=== PATIENT | female | born 2000 | race Caucasian/White ===

== ENCOUNTER → 2018-02-16 | Outpatient (CLI) | payer OTHER | END | disposition home or self-care (01) | LOC: C.LABSPEC 11:12 | PROVIDERS: ATTEND Physician Assistant | DX: Z12.4 Encounter for screening for malignant neoplasm of cervix (principal) ==

== ENCOUNTER 2022-04-19 12:55 | Inpatient (IN) ==
[2022-04-19] MEDS ORDERED: OXYTOCIN 30 UNITS/500 ML BAG IV PRN ×2 (13:44→17:06)
--- NOTE | 2022-04-19 13:55 | History & Physical Report ---
Date of Service April 19, 2022 Assessment & Plan (1) Spontaneous rupture of amniotic membranes: Plan: Admit and anticipate normal delivery History of Present Illness Chief Complaint: ruptured membranes Primary Care Provider: CASSY PCP 21 F P0000 at 36.6 weeks presents to L&D with leakage of clear fluid at 0500 t his AM. GBS is negative. Covid is negative. Allergies Allergy/AdvReac Type Severity Reaction Status Date / Time No Known Drug Allergies AdvReac Unknown Unknown Verified 04/19/22 13:21 Home Medications Medication Instructions Recorded Confirmed Type calcium 500 mg tablet 500 mg PO DAILY 04/14/22 04/19/22 History [id number] 1 mg 1 tab PO DAILY 04/14/22 04/19/22 History tablet Patient History Medical History No pertinent past medical history Surgical History S/P wisdom tooth extraction Family History Father Hypertension Mother No significant active problems Sister No problems noted. Denies family history of Ovarian cancer Prostate cancer Clotting disorder Myocardial infarction Breast cancer Colorectal cancer Uterine cancer Social History (Updated 04/19/22 @ 13:09 by Modesta Tapia) Smoking Status: Never smoker Hx Alcohol Use: No Hx Substance Use: No Preferred Language: Latvian Communication Ability: Effective Visual Impairment: No Limitations Hearing Ability: Normal Cotton Bag Clipper Required: No Beliefs That Will Affect Care: None marital status: marital status details: Yogi Cordova Current Living Situation: Spouse Current Living Situation Comment: current occupational status: employed current occupation: [employer]- [employer] Feels Safe at Home: Yes Childhood Exposure to Second-Hand Smoke: No Dental Care, Regularly: Yes Physical Activity Frequency: Daily Seatbelt Use: always Sunscreen Use: No 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 History neg Review of Systems All systems reviewed & are unremarkable except as noted in HPI & below Physical Exam Constitutional: WD/WN, vitals as above Eyes: PERRL, conjunctivae normal, anicteric sclerae Respiratory: normal respiratory effort, lungs clear to auscultation Cardiovascular: RRR, no murmur, no edema Skin: no rashes, warm and dry Neurologic: patellar DTR's 2+ bilat, sensation intact Psychiatric: A+Ox3, euthymic affect Genitourinary: no vaginal lesions, no adnexal mass normal external appearance Manual OB Exam: + cervical dilation 3 cm and 4 cm, + cervical effacement 80% and + station -2 OB Exam Monitor Tracing: + external FHT monitor used, + external uterine monitor used, + category I and + normal FHT variability Results & Data ([place]) Vital Signs (Past 12 Hours) Vital Signs Pulse BP 04/19/22 13:07 78 157/87 H Laboratory Results Amnisure is positive Code Status & VTE Plan VTE Prophylaxis Plan VTE Prophylaxis will be ordered: No Monitoring External Monitor Cat 1
[2022-04-19 14:17] LABS: Hematocrit (blood only) 34.5 % (37-47); Hemoglobin 11.8 g/dL (12.0-16.0); Mean Corpuscular Hemoglobin 30.2 pg (25-34); Mean Corpuscular Hgb Conc 34.2 g/dL (32-36); Mean Corpuscular Volume 88.2 fL (80-100); Mean Platelet Volume 10.5 fL (7.4-10.4); Platelet Count 187 K/uL (130-400); RDW Coefficient of Variation 13.2 % (11.5-14.5); RDW Standard Deviation 42.4 fL (36.4-46.3); Red Blood Count 3.91 M/uL (4.2-5.4); White Blood Count 8.86 K/uL (4.8-10.8)
[2022-04-19] MEDS ORDERED: BETAMETH SOD PHOS/ACETATE IA 6 MG/ML ONE (15:03)
[2022-04-19] MEDS ORDERED: Nursing to Pharmacy Communication SCH (15:15)
[2022-04-19] MEDS ORDERED: BETAMETH SOD PHOS/ACETATE IA 6 MG/ML IM ONE (15:45)
[2022-04-19] MEDS: LACTATED RINGER'S 1,000 ML IV PRN ×2 (17:42→22:20)
[2022-04-19] MEDS ORDERED: BUPIVACAINE 0.25% 30 ML VIAL ONE (20:01)
[2022-04-19] MEDS ORDERED: SODIUM CHLORIDE 0.9% INJ 10 ML VIAL ONE (20:01)
[2022-04-19] MEDS ORDERED: ePHEDrine sulfate 50 MG/ML AMP ONE (20:01)
[2022-04-19] MEDS ORDERED: fentaNYL citrate 100 MCG/2 ML VIAL ONE (20:01)
[2022-04-19] MEDS ORDERED: fentaNYL 2MCG/ML ROPIVACAINE 1.25MG/ML 100 ML BAG EPI ONE (20:02)
--- NOTE | 2022-04-19 20:25 | Anesthesiology Consultation ---
Date of Service April 19, 2022 Assessment & Plan Chart Review Chart Review: Acceptable Risk for Surgery, Patient NOT seen in Pre Admission Testing and Acceptable Risk for Labor Epidural Consults Requested none ASA ASA2 Proposed Anesthesia Anesthesia Type: Labor Epidural and CSE Risk / Benefits Reviewed With: PT / POA / Parent / Guardian, Accepts Plan and Informed Consent Obtained Additional Comments: covid test negative History Height/Weight Height: 5 ft Weight: 72.121 kg Allergies Allergy/AdvReac Type Severity Reaction Status Date / Time No Known Drug Allergies AdvReac Unknown Unknown Verified 04/19/22 13:21 Medications Home Medications Medication Instructions Recorded Confirmed Last Taken calcium 500 mg tablet 500 mg PO DAILY 04/14/22 04/19/22 04/19/22 07:00 [id number] 1 mg 1 tab PO DAILY 04/14/22 04/19/22 04/19/22 07:00 tablet Active Medications Generic Name Dose Route Start Last Admin Trade Name Freq PRN Reason Stop Dose Admin Lactated Ringer's 1,000 mls @ 125 mls/hr 04/19/22 13:44 04/19/22 17:42 Lr IV 04/21/22 13:43 125 mls/hr .Q8H PRN Administration L&D Protocol Protocol Oxytocin 30 units in 500 mls @ 3 mls/hr 04/19/22 17:06 04/19/22 18:45 Pitocin IV 04/21/22 17:05 0.18 units/hr .Q24H PRN 3 mls/hr Labor Induction/Augmentation Titration Protocol 0.18 UNITS/HR NPO Date Last Intake of Fluids: 04/19/22 Time Last Intake of Fluids: 19:45 Date Last Intake of Solids: 04/19/22 Time Last Intake of Solids: 12:00 Past Medical History Medical History No pertinent past medical history Exercise / Class Metabolic Activity II 4-5 Yardwork/Stairs/Walk up hill Past Family History Family History Father Hypertension Mother No significant active problems Sister No problems noted. Denies family history of Ovarian cancer Prostate cancer Clotting disorder Myocardial infarction Breast cancer Colorectal cancer Uterine cancer Past Surgical History Surgical History S/P wisdom tooth extraction Past Anesthesia History No Hx of Anesthesia Complications and No Family Hx of Anesthesia Complications History of PONV No Hx of PONV and No Hx of Motion Sickness Social History Smoking Status: Never smoker Do You Dip or Chew Tobacco: No Hx Alcohol Use: No Hx Substance Use: No substance use type: does not use Physical Exam Vital Signs Last Vital Signs Temp 36.8 C 04/19/22 19:00 Pulse 93 H 04/19/22 20:21 Resp 18 04/19/22 20:00 BP 143/90 H 04/19/22 19:38 Pulse Ox 100 04/19/22 20:21 Constitutional + obese ENMT Mouth: no dentition abnormality Thyromental Distance: < 3.5 Finger Breadths Mallampati Class: II Neck normal visual inspection and trachea midline; neck extension not limited Respiratory normal respiratory effort Auscultation: lungs clear to auscultation bilaterally Cardiovascular Rate/Rhythm: regular rate and regular rhythm Heart Sounds: no murmur Vessels: no carotid bruit Musculoskeletal Spine: lumbar spine normal to inspection; normal cervical ROM Extremities: extremities normal to inspection Neurologic moves all extremities Motor/Sensory: no sensory deficit Psychiatric Orientation: alert and oriented x 3 Testing Laboratory Results 04/19/22 14:08
[2022-04-19] MEDS ORDERED: NALOXONE HCL 1 MG in SODIUM CHLORIDE 0.9% 1000ML 1,000 ML IV PRN (20:51)
[2022-04-19] MEDS ORDERED: PROMETHAZINE HCL 25 MG in SODIUM CHLORIDE 0.9% 50 ML IV PRN (20:51)
[2022-04-19] MEDS ORDERED: NALOXONE HCL 0.4 MG/1 ML VIAL/CARP IV PRN (20:51)
[2022-04-19] MEDS ORDERED: fentaNYL 2MCG/ML ROPIVACAINE 1.25MG/ML 100 ML BAG EPI PRN (20:51)
[2022-04-19] MEDS ORDERED: ONDANSETRON INJ 2 MG/ML 2 ML VIAL IV PRN (20:51)
[2022-04-19] MEDS ORDERED: ePHEDrine sulfate 50 MG/ML AMP IV PRN (20:51)
[2022-04-19] MEDS ORDERED: NALBUPHINE HCL INJ 10 MG/ML AMP IV PRN (20:51)
[2022-04-19] MEDS ORDERED: diphenhydrAMINE 50 MG/ML VIAL IV PRN (20:51)
[2022-04-20] MEDS ORDERED: OXYTOCIN 30 UNITS/500 ML BAG IV PRN (02:30)
[2022-04-20] MEDS ORDERED: ACETAMINOPHEN 325 MG TAB PO PRN (02:30)
[2022-04-20] MEDS ORDERED: HYDROCORTISONE ACETATE 25 MG SUPP PR PRN (02:30)
[2022-04-20] MEDS ORDERED: BENZOCAINE 20% AER SPR 82.5 GM CAN EXT PRN (02:30)
[2022-04-20] MEDS ORDERED: DIPHTHERIA/TETANUS/PERTUSSIS 0.5 ML SYR/VIAL IM ONE (02:30)
--- NOTE | 2022-04-20 02:34 | Delivery Summary ---
Vaginal Delivery Summary Date of Service April 20, 2022 Vaginal Delivery Summary Delivery Note live male ARTHUR over intact perineum with delayed cord clamping and Apgars 8/9 weight pending. Cord blood obtained followed by spontaneous delivery of velamentous cord insertion. No tears. EBL 100 ml. Final sponge and instrument count are correct. Mom and baby stable.
[2022-04-20] MEDS ORDERED: IBUPROFEN 600 MG TAB PO ONE (03:03)
[2022-04-20] MEDS: IBUPROFEN 600 MG TAB PO PRN ×5 (03:04→23:46)
--- NOTE | 2022-04-20 03:28 | Anesthesia Procedure Note ---
Date of Service April 20, 2022 Anesthesia Post Epidural Note Vital Signs Vital Signs: Temp Pulse Resp BP Pulse Ox 98.2 F 119 H 20 119/57 L 95 04/19/22 23:00 04/20/22 03:25 04/20/22 03:00 04/20/22 03:14 04/20/22 03:25 Pain Intensity Bilateral Head: Pain Intensity: 3 Notes Mental Status: alert / awake / arousable and participated in evaluation Nausea / Vomiting: adequately controlled Pain: adequately controlled Airway Patency, RR, SpO2: stable & adequate BP & HR: stable & adequate Hydration State: stable & adequate Neuraxial Anesthesia: was administered and sensory block is resolving Anesthetic Complications: no major complications apparent and Pt Satisfied with anesthetic care Epidural: Removed without complications and With tip intact
[2022-04-20] MEDS: PRENATAL VITAMIN 1 TAB PO SCH (08:22)
[2022-04-20] MEDS: FERROUS SULFATE 325 MG TAB PO SCH (08:22)
[2022-04-20] MEDS: CALCIUM CARBONATE 1250MG TAB PO SCH (08:22)
[2022-04-20] MEDS: DOCUSATE SODIUM 100 MG CAP PO SCH ×2 (08:22→19:30)
[2022-04-20] MEDS ORDERED: NON-FORMULARY MEDICATION (Prenatal Multivit-Min-Fe-Fa 1 mg Tablet) PO SCH (09:00)
[2022-04-20] MEDS ORDERED: BETAMETH SOD PHOS/ACETATE IA 6 MG/ML IM SCH (13:45)
[2022-04-21 06:18] LABS: Hematocrit (blood only) 30.2 % (37-47); Hemoglobin 10.2 g/dL (12.0-16.0); Mean Corpuscular Hemoglobin 30.7 pg (25-34); Mean Corpuscular Hgb Conc 33.8 g/dL (32-36); Mean Platelet Volume 10.5 fL (7.4-10.4); Platelet Count 184 K/uL (130-400); RDW Coefficient of Variation 13.4 % (11.5-14.5); RDW Standard Deviation 44.2 fL (36.4-46.3); Red Blood Count 3.32 M/uL (4.2-5.4); White Blood Count 15.02 K/uL (4.8-10.8)
--- NOTE | 2022-04-21 11:04 | Obstetrical Progress Note ---
Date of Service April 21, 2022 Subjective Ambulation: ambulating normally Voiding: no voiding problems Passing Gas:: Yes Diet Tolerance:: regular diet Lochia:: Small Feeding Type:: breast feeding Current Pain Level(1-10): 0 doing well wants to home if baby cleared for d/c Physical Exam Constitutional WD/WN, vitals as above abdomen soft and non-tender fundus firm no edema neg Leandra's Results & Data ([facility]) Vital Signs (Past 12 Hours) Vital Signs Temp Pulse Resp BP Pulse Ox 04/21/22 07:46 36.6 C 71 18 97/61 L 98 04/20/22 23:45 36.7 C 63 18 102/62 97 Laboratory Results all 04/19/22 04/19/22 04/21/22 14:08 17:14 05:58 WBC 8.86 15.02 H RBC 3.91 L 3.32 L Hgb 11.8 L 10.2 L Hct 34.5 L 30.2 L MCV 88.2 91.0 MCH 30.2 30.7 MCHC 34.2 33.8 RDW Std Deviation 42.4 44.2 RDW Coeff of Jhony 13.2 13.4 Plt Count 187 184 MPV 10.5 H 10.5 H Amniotic Protein POS
[2022-04-21] MEDS: PRENATAL VITAMIN 1 TAB PO SCH (11:07)
[2022-04-21] MEDS: FERROUS SULFATE 325 MG TAB PO SCH (11:07)
[2022-04-21] MEDS: DOCUSATE SODIUM 100 MG CAP PO SCH ×2 (11:08→19:57)
[2022-04-21] MEDS: IBUPROFEN 600 MG TAB PO PRN ×2 (11:08→19:57)
[2022-04-21] MEDS ORDERED: bisacodyL 5 MG TABEC PO SCH (20:00)
[2022-04-22] MEDS ORDERED: bisacodyL 10 MG SUPP PR PRN (02:30)
[2022-04-22 06:25] LABS: Hematocrit (blood only) 29.9 % (37-47)
[2022-04-22] MEDS: CALCIUM CARBONATE 1250MG TAB PO SCH (08:11)
[2022-04-22] MEDS: DOCUSATE SODIUM 100 MG CAP PO SCH (08:11)
[2022-04-22] MEDS: FERROUS SULFATE 325 MG TAB PO SCH (08:11)
[2022-04-22] MEDS: PRENATAL VITAMIN 1 TAB PO SCH (08:11)
[2022-04-22] MEDS: IBUPROFEN 600 MG TAB PO PRN (08:11)
--- NOTE | 2022-04-22 09:44 | Obstetrical Progress Note ---
Date of Service April 22, 2022 Subjective Ambulation: ambulating normally Voiding: no voiding problems Passing Gas:: Yes Diet Tolerance:: regular diet Lochia:: Small Feeding Type:: breast feeding Current Pain Level(1-10): 0 doing well Physical Exam Constitutional WD/WN, vitals as above Gastrointestinal (Abdomen) Inspection/Auscultation: abdomen normal to inspection Abdomen soft and non-tender. fundus firm below U Skin no rashes, warm and dry Neurologic patellar DTR's 2+ bilat, sensation intact Results & Data ([facility]) Vital Signs (Past 12 Hours) Vital Signs Temp Pulse Resp BP Pulse Ox 04/22/22 09:31 36.8 C 89 18 141/84 H 99 04/22/22 07:55 36.8 C 89 18 141/84 H 99 04/21/22 23:39 36.7 C 77 16 120/77 97 Laboratory Results 04/19/22 04/19/22 04/21/22 14:08 17:14 05:58 WBC 8.86 15.02 H RBC 3.91 L 3.32 L Hgb 11.8 L 10.2 L Hct 34.5 L 30.2 L MCV 88.2 91.0 MCH 30.2 30.7 MCHC 34.2 33.8 RDW Std Deviation 42.4 44.2 RDW Coeff of Jhony 13.2 13.4 Plt Count 187 184 MPV 10.5 H 10.5 H Amniotic Protein POS 04/22/22 06:03 WBC RBC Hgb 10.0 L Hct 29.9 L MCV MCH MCHC RDW Std Deviation RDW Coeff of Jhony Plt Count MPV Amniotic Protein
== END 2022-04-22 15:20 | disposition home or self-care (01) | DRG 807 ==
LOC: OPB 12:55 → 4S1 12:59 → 4E2 04-20 05:16

== ENCOUNTER 2024-11-26 17:46 | Inpatient (IN) ==
--- NOTE | 2024-11-26 18:10 | History & Physical Report ---
Date of Service November 26, 2024 Assessment & Plan (1) Breech presentation: Present on Admission?: Yes (2) IUGR, : Present on Admission?: Yes (3) Oligohydramnios: Present on Admission?: Yes Plan Admit on L and D NPO/IV Fluids labs Silveira to catheter Ancef 2 gm iv Pepcid, Reglan consent obtained, discussed the risks and benefits of the procedure OR and Anesthesia informed Admission and Anticipated Discharge Date Admission Date: November 26, 2024 History of Present Illness Chief Complaint: scheduled primary low transverse section for breech presentation, low LENNY, IUGR Primary Care Provider: NO PCP Pt 23 yr old IUP at 37 weeks came to L and D from the office for primary low transverse section for malpresentation( breech), IUGR ( EFW: 8 %),LENNY ( 3.8 cm) Pt denies regular uterine contractions, vaginal bleeding, leaking of fluid per vagina etc. Reports food movement. Allergies Allergy/AdvReac Type Severity Reaction Status Date / Time No Known Drug Allergies AdvReac Unknown Unknown Verified 11/26/24 17:59 Home Medications Medication Instructions Recorded Confirmed Type aspirin 81 mg capsule 81 mg PO DAILY 11/26/24 11/26/24 History ferrous sulfate 325 mg (65 mg 325 mg PO DAILY 11/26/24 11/26/24 History iron) tablet (Iron (ferrous sulfate)) vits no.124-ferrous fum 1 tab PO DAILY 11/26/24 11/26/24 History 27 mg iron-folic acid 800 mcg tablet ( Vitamin) Patient History Medical History Varicella vaccination Spontaneous rupture of amniotic membranes Gestational [-induced] hypertension without significant proteinuria, complicating childbirth Surgical History S/P wisdom tooth extraction Family History Father Hypertension Mother No significant active problems Sister No problems noted. Denies family history of Ovarian cancer Prostate cancer Clotting disorder Myocardial infarction Breast cancer Colorectal cancer Uterine cancer Social History Smoking Status: Never smoker Second Hand Exposure: No; Do You Dip or Chew Tobacco: No; Hx Alcohol Use: No Hx Substance Use: No Preferred Language: Estonian Communication Ability: Effective Visual Impairment: No Limitations Hearing Ability: Normal Recordist Chief Required: No Beliefs That Will Affect Care: None marital status: marital status details: Yogi Cordova (28) [phone] Current Living Situation: Spouse and Family Current Living Situation Comment: Lives with and son, 1 dog current occupational status: employed current occupation: [employer] How many Children do You have: 1 Feels Safe at Home: Yes Childhood Exposure to Second-Hand Smoke: No Diet: regular Dental Care, Regularly: Yes Physical Activity Frequency: Daily Seatbelt Use: always Sunscreen Use: No Assistive Devices: None OB History NSVDx 1 Review of Systems All systems reviewed & are unremarkable except as noted in HPI & below as per Subjective / HPI as per Subjective / HPI as per Subjective / HPI as per Subjective / HPI as per Subjective / HPI Physical Exam Constitutional: WD/WN, vitals as above Respiratory: normal respiratory effort, lungs clear to auscultation Cardiovascular: RRR, no murmur, no edema Gastrointestinal (Abdomen): normal bowel sounds, soft, nontender, no hepatosplenomegaly Skin: no rashes, warm and dry Psychiatric: A+Ox3, euthymic affect Genitourinary: no vaginal lesions, no adnexal mass OB Exam Monitor Tracing: + external FHT monitor used, + external uterine monitor used and + category II Results & Data Vital Signs (Past 12 Hours) Vital Signs Temp Pulse Resp BP 11/26/24 17:57 36.8 C 18 11/26/24 17:56 99 H 133/85 Monitoring External Monitor 140S, Moderate variability Tocodynamometer irregular uterine contractions
[2024-11-26] MEDS: SODIUM CHLORIDE 0.9% 1,000 ML IV SCH (18:15)
[2024-11-26] MEDS: ACETAMINOPHEN 500 MG TAB ONE (18:18)
[2024-11-26 18:30] LABS: Hemoglobin 12.3 g/dl (12.0-16.0); Mean Corpuscular Hemoglobin 29.1 pg (25.0-34.0); Mean Corpuscular Hgb Conc 34.2 g/dL (32.0-36.0); Mean Corpuscular Volume 85.3 fL (80.0-100.0); Platelet Count 212 K/uL (130-400); RDW Coefficient of Variation 14.2 % (11.5-14.5); RDW Standard Deviation 43.3 fL (36.4-46.3); Red Blood Count 4.22 M/uL (4.20-5.40); White Blood Count 11.36 K/ul (4.8-10.8)
[2024-11-26] MEDS: CITRIC ACID/SODIUM CITRATE 15 ML UDC PO ONE (18:31)
[2024-11-26] MEDS: ACETAMINOPHEN 500 MG TAB PO ONE (18:31)
[2024-11-26] MEDS ORDERED: SODIUM CHLORIDE 0.9% 1,000 ML IV SCH ×2 (19:15→23:15)
[2024-11-26] MEDS: ceFAZolin 2000MG 2,000 MG/15 ML SYR IV ONE (21:50)
[2024-11-26] MEDS: CITRIC ACID/SODIUM CITRATE 15 ML UDC ONE (21:50)
--- NOTE | 2024-11-26 21:55 | Anesthesiology Consultation ---
Date of Service November 26, 2024 Assessment & Plan Chart Review Chart Review: Acceptable Risk for Surgery Consults Requested none History Surgery Operation Date: 11/26/24 19:00 Proposed Procedures p Section in LD(Bilateral) - Jeanna Perez MD Height/Weight Height: 5 ft Weight: 74.389 kg Allergies Allergy/AdvReac Type Severity Reaction Status Date / Time No Known Drug Allergies AdvReac Unknown Unknown Verified 11/26/24 17:59 Medications Home Medications Medication Instructions Recorded Confirmed Last Taken aspirin 81 mg capsule 81 mg PO DAILY 11/26/24 11/26/24 11/26/24 ferrous sulfate 325 mg (65 mg 325 mg PO DAILY 11/26/24 11/26/24 11/26/24 iron) tablet (Iron (ferrous sulfate)) vits no.124-ferrous fum 1 tab PO DAILY 11/26/24 11/26/24 11/26/24 27 mg iron-folic acid 800 mcg tablet ( Vitamin) Past Medical History Medical History Varicella vaccination Spontaneous rupture of amniotic membranes Gestational [-induced] hypertension without significant proteinuria, complicating childbirth Past Family History Family History Father Hypertension Mother No significant active problems Sister No problems noted. Denies family history of Ovarian cancer Prostate cancer Clotting disorder Myocardial infarction Breast cancer Colorectal cancer Uterine cancer Past Surgical History Surgical History S/P wisdom tooth extraction Social History Smoking Status: Never smoker Do You Dip or Chew Tobacco: No Hx Substance Use: No substance use type: does not use Physical Exam Vital Signs Last Vital Signs Temp 36.5 C 11/26/24 19:30 Pulse 102 H 11/26/24 21:19 Resp 16 11/26/24 19:30 BP 124/74 11/26/24 21:19 Testing Laboratory Results 11/26/24 18:09 Blood Type A Positive 11/26/24 18:09 Antibody Screen NEGATIVE 11/26/24 18:09
[2024-11-26] MEDS ORDERED: PHENYLEPHRINE HCL 25 MG/250 ML NSS IV ONE (22:10)
[2024-11-26] MEDS ORDERED: MoRPHine SULFATE PF 1 MG/ML 10 ML AMP/VIAL ONE (22:10)
[2024-11-26] MEDS ORDERED: ONDANSETRON INJ 2 MG/ML 2 ML VIAL ONE (22:16)
[2024-11-26] MEDS ORDERED: OXYTOCIN 10 UNITS/ML VIAL ONE (22:17)
[2024-11-26] MEDS ORDERED: SENNA 8.6 MG TAB PO PRN (23:03)
[2024-11-26] MEDS ORDERED: MAGNESIUM HYDROXIDE SUSP 30 ML UDC PO PRN (23:03)
[2024-11-26] MEDS ORDERED: CALCIUM CARBONATE 500 MG CHEWABLE TAB PO PRN (23:03)
[2024-11-26] MEDS ORDERED: HYDROCORTISONE ACETATE 25 MG SUPP PR PRN (23:03)
[2024-11-26] MEDS ORDERED: ONDANSETRON INJ 2 MG/ML 2 ML VIAL IV PRN (23:03)
[2024-11-26] MEDS ORDERED: BENZOCAINE 20% SPRY 85 APPLN/85 GM CAN EXT PRN (23:03)
--- NOTE | 2024-11-26 23:05 | Post Operative Brief Note ---
Immediate Post Op Note Date of Surgery November 26, 2024 Pre & Post Diagnosis Operation Date: 11/26/24 19:00 Pre-Op Diagnosis: 1. Breech presentation 2. IUGR 3. Oligohydramnios Post-Op Diagnosis: 1. Same 2. Delivery of live female child at 2240 I identified the patient and participated in the time-out.: Yes Procedure Operation Date: 11/26/24 19:00 Actual Procedures p Section in LD - Jeanna Perez MD Surgeon Jeanna Perez MD Temporary Staff Accountant kaimla : Surgical florin available for retraction Quantitative Blood Loss (QBL) 456 Findings Consistent with Post-Op Diagnosis Fluids 1 L LR Specimens Specimen Description: placenta-hold cord blood Drains Silveira Catheter Complications none Disposition Accompanied Patient To Recovery: No
--- NOTE | 2024-11-26 23:18 | Operative Report ---
Post Operative Report Pre & Post Diagnosis Operation Date: 11/26/24 19:00 Pre-Op Diagnosis: 1. Breech presentation 2. IUGR 3. Oligohydramnios Post-Op Diagnosis: 1. Same 2. Delivery of live female child at 2240 I identified the patient and participated in the time-out.: Yes Procedure Operation Date: 11/26/24 19:00 Actual Procedures p Section in - Jeanna Perez MD Surgeon Jeanna Perez MD Bridges Supervisor [email or web address] : Surgical florin available for retraction Quantitative Blood Loss (QBL) 456 Findings Consistent with Post-Op Diagnosis Specimens none Anesthesia Type MAC Spinal Regional Complications none Disposition Accompanied Patient To Recovery: No Indications IUP at 37 weeks, IUGR ( EFW: 8 %), LENNY: 3.8 cm, Quinten Breech presentation. Description of Procedure Description of Procedure Patient was brought to the operating room identified correctly. Spinal anesthesia was administered. Compression stockings were applied. Silveira catheter was inserted aseptically into the bladder connected to gravity drainage. Pt was prepped and draped in usual fashion. Patient was then draped in usual sterile fashion. Then a Pfannenstiel incision was made and carried down to the anterior fascia by sharp dissection. Hemostasis was secured by electrocauterization. Fascia was incised transversely from the recti muscles by blunt and sharp dissection. Recti muscles were in the midline. Peritoneum was carefully raised and entered. A bladder blade was inserted in the incision and used to provide adequate exposure of the lower uterine segment. An incision was made above the vesicouterine fold. The bladder was undermined bluntly pushed out of the operative field. Lower uterus was then entered first with a knife. Clear amniotic fluid could be seen at this time. The incision is then widened bluntly. Operators hands was inserted into the uterine cavity. The buttocks of the infant was grasped in my left hand and then pulled out through the abdominal incision. Both legs came out easily. Both arms were reduced easily. Head was delivered atraumatically. Infant was then suctioned through the mouth and the nose. Healthcare Corporate Account Director was scrubbed and present at the time of the delivery. Cord blood was then taken. Uterus was brought out through the incision. After removal of the placenta, Uterus tubes and ovaries were brought out through the incision. Uterine cavity was cleansed with a clean sponge. The uterus is closed in two layers , first layer closed with 0.Vicryl in a running fashion, the second layer for imbrication. This approximated the fascial layer over the myometrial layer following this hemostasis was excellent. We then restored the integrity of the vesicouterine fold using a 2-0 plain suture to suture the vesicouterine fold back into position. Tubes and ovaries were inspected found to be normal. Pelvis was cleansed of all blood clots and debris. Uterus tubes and ovaries were reinserted into the abdominal cavity. The retractor was removed. Careful anatomical approximation was now performed. Fascial layer was approximated with 0. Vicryl which was placed in a continuous interlocking fashion. Subcutaneous layer then sutured with 2.0 Vicryl. And skin edges were approximated with with 3.0 Vicryl on a alec needle. patient tolerated procedure well left the OR in good condition. Calculated blood loss was 464 mL Urine out put: 50 cc clear urine Total fluid input; 1 l LR APGARS; 8,9 at 1 and 5 min I attest to the content of the Intraoperative Record and any orders documented therein. Any exceptions are noted below.
[2024-11-26] MEDS: KETOROLAC 30 MG/ML VIAL IV SCH (23:56)
[2024-11-26] MEDS: DIPHTHER/TETAN/PERTUS Vaccine (Tdap, Adol/Adult) 0.5mL IM ONE (23:58)
[2024-11-27] MEDS ORDERED: NALOXONE HCL 1 MG in SODIUM CHLORIDE 0.9% 1,000 ML IV PRN (00:53)
[2024-11-27] MEDS ORDERED: NALBUPHINE HCL INJ 10 MG/ML AMP IV PRN (00:53)
[2024-11-27] MEDS ORDERED: diphenhydrAMINE 50 MG/ML VIAL IV PRN ×2 (00:53→18:53)
[2024-11-27] MEDS ORDERED: ePHEDrine sulfate 50 MG/ML AMP IV PRN (00:53)
[2024-11-27] MEDS ORDERED: KETOROLAC 30 MG/ML VIAL IV PRN ×2 (00:53→23:03)
[2024-11-27] MEDS ORDERED: NALOXONE HCL 0.4 MG/1 ML VIAL/CARP IV PRN (00:53)
[2024-11-27] MEDS ORDERED: MoRPHine SULFATE PF 1 MG/ML 10 ML AMP/VIAL INT SPINAL ONE (00:53)
--- NOTE | 2024-11-27 00:53 | Anesthesiology Progress Note ---
Date of Service November 27, 2024 Anesthesia Post Procedure Vital Signs Vital Signs: Temp Pulse Resp BP Pulse Ox 11/27/24 00:49 110 H 97 11/27/24 00:44 109 H 97 11/27/24 00:40 104 H 124/83 11/27/24 00:39 114 H 96 11/27/24 00:34 116 H 96 11/27/24 00:30 16 11/27/24 00:29 102 H 97 11/27/24 00:24 96 H 98 11/27/24 00:19 104 H 97 11/27/24 00:14 97 H 96 11/27/24 00:10 16 11/27/24 00:10 16 11/27/24 00:10 93 H 117/63 11/27/24 00:09 90 97 11/27/24 00:04 94 H 97 11/27/24 00:00 16 11/27/24 00:00 90 122/76 11/26/24 23:59 97 11/26/24 23:59 87 11/26/24 23:54 97 11/26/24 23:54 103 H 11/26/24 23:51 16 11/26/24 23:50 96 H 11/26/24 23:50 127/63 11/26/24 23:49 95 11/26/24 23:49 99 H 11/26/24 23:44 98 11/26/24 23:44 98 H 11/26/24 23:40 16 11/26/24 23:39 99 11/26/24 23:39 90 11/26/24 23:39 117/66 11/26/24 23:34 98 11/26/24 23:34 93 H 11/26/24 23:30 16 11/26/24 23:30 98 H 11/26/24 23:30 121/64 11/26/24 23:29 99 11/26/24 23:29 93 H 11/26/24 23:24 98 11/26/24 23:24 101 H 11/26/24 23:20 16 11/26/24 23:19 97 11/26/24 23:19 118 H 11/26/24 23:19 112/59 L 11/26/24 23:14 96 11/26/24 23:14 93 H 11/26/24 23:14 112/60 11/26/24 23:10 36.6 C 16 11/26/24 23:09 96 11/26/24 23:09 94 H 11/26/24 23:09 114/62 11/26/24 21:19 102 H 11/26/24 21:19 124/74 11/26/24 19:30 16 11/26/24 19:30 36.5 C 16 11/26/24 17:57 36.8 C 18 11/26/24 17:56 99 H 133/85 Transfer of Care Handoff Completed per policy Notes Mental Status: alert / awake / arousable and participated in evaluation Nausea / Vomiting: adequately controlled Pain: adequately controlled Airway Patency, RR, SpO2: stable & adequate BP & HR: stable & adequate Hydration State: stable & adequate Neuraxial Anesthesia: was administered and sensory block is resolving Anesthetic Complications: no major complications apparent and Pt Satisfied with anesthetic care
[2024-11-27] MEDS ORDERED: DC INTRASPINAL MORPHINE SCH (01:00)
[2024-11-27] MEDS ORDERED: NO NARCOTICS OR SEDATIVES SCH (01:00)
[2024-11-27] MEDS: OXYTOCIN 20 UNITS/LR 1,002 ML IV SCH (01:35)
--- OUTSIDE RECORDS SUMMARY | 2024-11-27 02:53 | External Medical Summary ---
Author Name Unknown Address Unknown Organization [id number]:LABORATORY [facility] [place] - [address] [place] [address] Laboratory Report Ordering Provider Test Date Status TONYA HAMILTON 11/25/2024 09:48:41 Final Observation Date Value Abnormality Reference (Units ) Status Streptococcus agalactiae DNA [Presence] in Specimen by JUAN with probe detection 11/25/2024 09:48:41 Negative Negative Final No Group B Streptococcus det ected by culture-enhanced PCR (amplified probe). GBS GBSCT - [facility] 11/25/2024 09:48:41 0.0 Final GBS SPCCT - [facility] 11/25/2024 09:48:41 32.4 Final Performing Location LABORATORY [facility] [place] - [address] [place] [address]
--- OUTSIDE RECORDS SUMMARY | 2024-11-27 02:53 | External Medical Summary ---
Author Name Unknown Address Unknown Organization [id number]:LABORATORY [facility] [place] - [address] [place] [address] Laboratory Report Ordering Provider Test Date Status TOSHA NELSON 11/25/2024 09:01:19 Final Normal: <150 mg/ g creatinine
High: 150-500 mg/g creatinine
Very High: >500 mg/g creatinine
Nephrotic: >3000 mg/g creatinine Observation Date Value Abnormality Reference (Units) Status Protein, Urine 11/25/2024 09:01:19 <6 (mg/dL) Final Creatinine, Urine 11/25/2024 09:01:19 39 (mg/dL) Final PROTEIN/CREATININE RATIO, HIDE 11/25/2024 09:01:19 Uninterpretable Protein/Creatinine ratio due to very low protein and creatinine values. (mg/g) Final Performing Location LABORATORY [facility] [place] - [address] [place] [address]
--- OUTSIDE RECORDS SUMMARY | 2024-11-27 02:54 | External Medical Summary ---
Author Name Unknown Address Unknown Organization [id number]:LABORATORY [facility] [place] - [address] [place] [address] Laboratory Report Ordering Provider Test Date Status ALFONSOTONYA 09/25/2024 15:10:36 Final Observation Date Value Abnormality Reference (Units ) Status Iron 09/25/2024 15:10:36 63 33-151 (ug/dL) Final Iron-binding capacity 09/25/2024 15:10:36 522 Above high normal 250-425 (ug/dL) Final Transferrin Sat % 09/25/2024 15:10:36 12 Below low normal 15-55 (%) Final Performing Location LABORATORY [facility] [place] - [address] [place] [address]
--- OUTSIDE RECORDS SUMMARY | 2024-11-27 02:54 | External Medical Summary ---
Author Name Unknown Address Unknown Organization [id number]:[facility]ATORY [place] [address] - [address] [place] [address] Laboratory Report Ordering Provider Test Date Status TONYA HAMILTON 11/06/2024 13:24:23 Final Observation Date Value Abnormality Reference (Units ) Status SYNC LEUKOCYTES IN BLOOD BY AUTOMATED COUNT 11/06/2024 13:24:23 8.64 4.00-10.80 (K/uL) Final Segs 11/06/2024 13:24:23 71.0 40.0-75.0 (%) Final Lymphs % 11/06/2024 13:24:23 18.6 18.0-42.0 (%) Final Monos 11/06/2024 13:24:23 10.1 1.0-11.0 (%) Final Eosinophils 11/06/2024 13:24:23 0.2 0.0-6.0 (%) Final Basos 11/06/2024 13:24:23 0.1 0.0-2.0 (%) Final Absolute Segs 11/06/2024 13:24:23 6.13 1.80-7.70 (K/uL) Final Lymphs, absolute 11/06/2024 13:24:23 1.61 1.00-4.80 (K/ul) Final Monos, Abs 11/06/2024 13:24:23 0.87 0.00-1.10 (K/uL) Final Eos, Abs 11/06/2024 13:24:23 0.02 0.00-0.70 (K/uL) Final Basos, Abs 11/06/2024 13:24:23 0.01 0.00-0.20 (K/uL) Final Performing Location [facility] [address] [place] [address]
--- OUTSIDE RECORDS SUMMARY | 2024-11-27 02:54 | External Medical Summary | Summary of Care ---
Author Name Unknown Organization [facility] Address [address] [facility] [place] [address] Phone [phone] Care Team Providers Care Computer Art Instructor Name Role Phone Payal Qureshi PA-C Primary Care Provider Encounter Details Date Type Department Care Team (Late st Contact Info) Description 09/27/2024 Telephone Gynecology/Obstetrics Kelli Martinez [address] [place] [address] Nina Garcia PA-C [address] [place] [address] Allergies No known active allergiesdocumented as of this encounter (statuses as of 09/27/2024) Medications 27-0.8 MG Oral Tablet Take by mouth. Active documented as of this encounter (statuses as of 09/27/2024) Active Problems Problem Noted Date Diagnosed Date Antepartum anemia complicating 024 Overview (09/27/2024): Hgb 11.8 with third tri labs Start once daily oral iron INFORMATION 09/25/2024 Overview (09/25/2024): Daughter in Law of jerzy Cordova Encounter for supervision of other normal , unspecified trimester 08/02/2024 Gestational hypertension wit hout significant proteinuria in third trimester 04/14/2022 Overview (08/02/2024): GHTN with first Estimated Date of Delivery Comme nts Yes 12/17/2024 Based on last me nstrual period of 03/12/2024 documented as of this encounter (statuses as of 09/27/2024) Resolved Problems Problem Noted Date Diagnosed Date Resolved Date Supervision of high-risk pre gnancy, unspecified trimester 09/30/2021 06/07/2022 Overview (10/04/2021): Labs through [facility]: A+, rubella immune, HIV neg, RPR non-reactive documented as of this encounter (statuses as of 09/27/2024) Immunizations Name Administration Dates Next Due COVID-19 mRNA, LNP-s, No Pre serve, 2-Dose Series (Pfizer) 07/22/2022,07/01/2022 DTaP Dipth/Tet/Acell Pertussis (Infanrix), Peds 12/01/2003,06/20/2000,06/22/1999,04/29,02/26/1999 HIB PRP-T, 4 Dose, PF, IM (H iberix, ActHib) 12/27/1999,06/22/1999,04/29/1999,02/26 Hepatitis B, 0-19 yrs 09/24/2018, 018,06/22/1999,02/26,1998 Hepatitis B, 20+ yrs 01/25/2019 IPV - Polio Virus Vaccine (Inact) 2003,12/27/1999,04/29/1999,02/26 MMR - Measles/Mumps/Rubella Vaccine 12/01/2003,0 12/27/1999 Meningococcal MCV4P Conjugat e Vaccine (Menactra) 06/13/2016,07/14/2010 PPD 08/03/2022,,03/01/2021,11/09,10/31/2018,02/02/2018 Rotavirus Vacc, Attenuated 2 dose (Rotarix) 04/29/1999 Seasonal Influenza Virus Vac cine, Unspecified Formulation 08/21/2018,2004 TDAP (age 10 and older)(Boostrix) 02/24/2022 TDAP, Age 7 and older, IM (Adacel) 09/25/2024,,07/14/2010 Varicella Vaccine (Chicken Pox) 07/14/2010,12/27 documented as of this encounter Social History Tobacco Use Types Packs/Day Years Used Date Smoking Tobacco: Never Smokeless Tobacco: Never Alcohol Use Standard Drinks/Week Comments Not Currently 0 (1 standard drink = 0.6 oz pur e alcohol) occ [place] Depression Scale Answer Date Recorded [place] Depression Scale Total 5 06/21/2024 The thought of harming myself has occurred to me . Never 06/21/2024 Estimated Date of Delivery Comme nts Yes 12/17/2024 Based on last me nstrual period of 03/12/2024 Sex and Gender Information Value Date Recorded Sex Assigned at Female 06/21/2024 11:35 AM EDT Legal Sex Female 8:45 AM EDT Gender Identity Female 06/21/2024 11:35 AM EDT Sexual Orientation Straight 06/21/2024 11 :35 AM EDT Occupation Industry Job Start Date Job End Date Not on file Not on file Not on file Not on file documented as of this encounter Miscellaneous Notes * Telephone Encounter - Nina Garcia PA-C - 09/27/2024 3:00 PM EST Okay to continue with once daily iron. She should try to avoid with milk/calcium in future and takeseparate time of vitamin to increase absorption. Thank you! Nina Garcia PA-C * Telephone Encounter - aKity Stratton LPN - 09/27/2024 1:11 PM EST Patient aware. Currently takes iron supplement once a day, she does take it with her prenatals and chocolate milk though. Should she increase to BID or take an hour apart from prenatals/dairy? States she does tolerate once a day iron fine. * Telephone Encounter - Nina Garcia PA-C - 09/27/2024 12:32 PM EST Patient slightly anemic. Hgb 11.8. Would recommend she start once daily oral iron. May cause constipation -- can take Colace. She passed glucose testing. Remainder of labs normal for . Nina Garcia PA-C documented in this encounter Plan of Treatment Health Maintenance Due Date Last Done Comments Depression Screening 2010 HPV (Gardasil) Vaccine (1 - 3-dose series) 2013 Hepatitis C Screening 2016 COVID-19 Vaccine ( season) 2024 07/22/2022, 07/01/2022 Influenza Vaccine (FLU shot) (#1) 2024 08/21/2018, 2004 GFR 09/25/2025 09/25/2024, 04/13/2022 Pap Smear 05/10/2027 05/10/2024, 08/21/2020 DTap/Tdap Vaccines (10 - Td or Tdap) 09/25/2034 09/25/2024, 02/24/2022, 04/01/2019, Additional history exists MENINGOCOCCAL (MENACTRA/MENVEO) Completed 06/13/2016, 07/14/2010 Hepatitis B Vaccine Completed 01/25/2019, 09/24/2018, 07/20/2018, Additional history exists Gonorrhea / Chlamydia Screen Discontinued 05/10/2024, 09/30/2021, 03/11/2019 Pneumococcal Vaccine: Pediatrics (0 to 5 Years) and At-Risk Patients (6 to 64 Years) Aged Out No longer eligible based on patient's age to complete this topic documented as of this encounter Medical Devices Not on filedocumented as of this encounter Care Teams Computer Art Instructor Relationship Specialty Start Date End Date Payal Qureshi PA-C [address] [place] [phone] PCP - General Physician Stores Despatch Hand 02/25/21 documented as of this encounter
--- OUTSIDE RECORDS SUMMARY | 2024-11-27 02:54 | External Medical Summary ---
Author Name Unknown Address Unknown Organization [id number]:[facility] [place] [address] [place] [address] Laboratory Report Ordering Provider Test Date Status TONYA HAMILTON 09/25/2024 15:10:36 Final Observation Date Value Abnormality Reference (Units ) Status TSH 09/25/2024 15:10:36 1.49 0.27-4.20 (uIU/mL) Final Performing Location [facility] - [address] [place] [address]
--- OUTSIDE RECORDS SUMMARY | 2024-11-27 02:54 | External Medical Summary ---
Author Name Unknown Address Unknown Organization [id number]:[facility] [address] - [address] [place] [address] Laboratory Report Ordering Provider Test Date Status TOSHA NELSON 11/21/2024 08:40:00 Final Observation Date Value Abnormality Reference (Units ) Status Color of Urine by Auto 11/21/2024 08:40:00 Yellow Light Yellow, Yellow Final Clarity, Urine 11/21/2024 08:40:00 Clear Clear Final Glucose [Mass/volume] in Urine by Automated test strip 11/21/2024 08:40:00 Negative Negative (mg/dL) Final Bilirubin.total [Presence] in Urine by Automated test strip 11/21/2024 08:40:00 Negative Negative Final Ketones [Mass/volume] in Urine by Automated test strip 11/21/2024 08:40:00 Negative Negative (mg/dL) Final Specific gravity, Urine 11/21/2024 08:40:00 1.020 1.003-1.030 Final Hemoglobin [Presence] in Urine by Automated test strip 11/21/2024 08:40:00 Negative Negative Final pH, Urine 11/21/2024 08:40:00 7.0 5.0, 5.5, 6.0, 6.5, 7.0, 7.5 (units) Final Protein [Mass/volume] in Urine by Automated test strip 11/21/2024 08:40:00 Negative Negative (mg/dL) Final Urobilinogen, Urine 11/21/2024 08:40:00 0.2 0.2, 1.0 (mg/dL) Final Nitrite [Presence] in Urine by Automated test strip 11/21/2024 08:40:00 Negative Negative Final Leukocyte esterase [Presence] in Urine by Automated test strip 11/21/2024 08:40:00 Trace Abnormal Negative Final Performing Location [facility] [address] - [address] [place] [address]
--- OUTSIDE RECORDS SUMMARY | 2024-11-27 02:54 | External Medical Summary ---
Author Name Unknown Address Unknown Organization [id number]:[facility] [address] - [address] [place] [address] Laboratory Report Ordering Provider Test Date Status TOSHA NELSON 11/06/2024 13:24:23 Final Observation Date Value Abnormality Reference (Units ) Status BUN 11/06/2024 13:24:23 10 6-20 (mg/dL) Final Creatinine 11/06/2024 13:24:23 0.6 0.5-1.0 (mg/dL) Final Glomerular filtration rate/1.73 sq M.predicted [Volume Rate/Area] in Serum, Plasma or Blood by Creatinine-based formula (CKD-EPI) 11/06/2024 13:24:23 >90 >=60 (mL/min) Final eGFR is calculated based on the CKD-EPI 2020 equation. Sodium 11/06/2024 13:24:23 137 135-146 (m mol/L) Final Potassium 11/06/2024 13:24:23 4.3 3.5-5.1 (m mol/L) Final Cl 11/06/2024 13:24:23 102 98-107 (mm ol/L) Final CO2 11/06/2024 13:24:23 22 22-32 (mmo l/L) Final Anion gap 11/06/2024 13:24:23 13 7-15 (mmol /L) Final Glucose 11/06/2024 13:24:23 93 70-120 (mg /dL) Final Albumin 11/06/2024 13:24:23 3.7 Below low normal 3.8 -5.0 (g/dL) Final AST (Aspartate aminotransferase) 11/06/2024 13:24:23 12 10-35 (U/L) Fin al Alk Phos 11/06/2024 13:24:23 104 35-130 (U/ L) Final Bilirubin, Total 11/06/2024 13:24:23 <0.2 <=1 .2 (mg/dL) Final Calcium 11/06/2024 13:24:23 9.6 8.4-10.2 ( mg/dL) Final Protein 11/06/2024 13:24:23 6.1 6.0-8.3 (g /dL) Final ALT (Alanine aminotransferase) 11/06/2024 13:24:23 10 10-35 (U/L) Declan ridley Performing Location LABORATORY [place] [address] - [address] [facility] [address]
--- OUTSIDE RECORDS SUMMARY | 2024-11-27 02:54 | External Medical Summary ---
Author Name Unknown Address Unknown Organization [id number] [place] [address] - [address] [place] [address] Laboratory Report Ordering Provider Test Date Status TONYA HAMILTON 11/06/2024 13:24:23 Final Observation Date Value Abnormality Reference (Units ) Status WBC, Total 11/06/2024 13:24:23 8.64 4.00-10.8 0 (K/uL) Final RBC 11/06/2024 13:24:23 3.83 3.85-5.15 (M/uL) Final Hemoglobin 11/06/2024 13:24:23 11.4 Below low normal 12 .0-15.3 (g/dL) Final Anemia reflex testing trigge rs on a HGB < 12.0 for Females and HGB < 13.0 for Males in accordance with the WHO Anemia Guidelines
Anemia reflex testing triggers on a HGB < 12.0 for Females and HGB < 13.0 for Males in accordance with the WHO Anemia Guidelines HCT 11/06/2024 13:24:23 34.5 Below low normal 36. 0-45.2 (%) Final MCV 11/06/2024 13:24:23 90.1 81.5-97.5 (fL) Final MCH 11/06/2024 13:24:23 29.8 27.0-34.0 (pg) Final MCHC 11/06/2024 13:24:23 33.0 32.0-36.0 (g/dL) Final RDW 11/06/2024 13:24:23 13.5 11.5-15.5 (%) Final Platelets 11/06/2024 13:24:23 200 140-400 (K /uL) Final MPV 11/06/2024 13:24:23 10.2 6.6-11.1 ( fL) Final Performing Location [facility]ORY [facility] [address] [place] [address]
--- OUTSIDE RECORDS SUMMARY | 2024-11-27 02:54 | External Medical Summary ---
Author Name Unknown Address Unknown Organization [id number]:LABORATORY [facility] [place] - [address] [place] [address] Laboratory Report Ordering Provider Test Date Status ALFONSOTONYA 11/06/2024 13:24:23 Final Observation Date Value Abnormality Reference (Units ) Status Iron 11/06/2024 13:24:23 110 33-151 (ug/dL) Final Iron-binding capacity 11/06/2024 13:24:23 500 Above high normal 250-425 (ug/dL) Final Transferrin Sat % 11/06/2024 13:24:23 22 15-55 (%) Final Performing Location LABORATORY [facility] [place] - [address] [place] [address]
--- OUTSIDE RECORDS SUMMARY | 2024-11-27 02:54 | External Medical Summary ---
Author Name Unknown Address Unknown Organization [id number]:[facility] [address] - [address] [place] [address] Laboratory Report Ordering Provider Test Date Status TONYA HAMILTON 09/25/2024 15:10:36 Final Observation Date Value Abnormality Reference (Units ) Status Glucose [Moles/volume] in Serum or Plasma --1 hour post 50 g glucose PO 09/25/2024 15:10:36 128 70-129 (mg/dL) Final Performing Location [facility] [address] - [address] [place] [address]
--- OUTSIDE RECORDS SUMMARY | 2024-11-27 02:54 | External Medical Summary ---
Author Name Unknown Address Unknown Organization [id number]:[facility] [place] [address] [place] [address] Laboratory Report Ordering Provider Test Date Status TONYA HAMILTON 09/25/2024 15:10:36 Final Observation Date Value Abnormality Reference (Units ) Status Treponema pallidum Ab [Presence] in Serum by Immunoassay 09/25/2024 15:10:36 Nonreactive Nonreactive Final No serologic evidence of syp hilis. No additional testing clinicially indicated at this time. Consider repeat testing in 2-4 weeks if acute or primary syphilis is suspected. Performing Location [facility] [place] [address] [place] [address]
--- OUTSIDE RECORDS SUMMARY | 2024-11-27 02:54 | External Medical Summary ---
Author Name Unknown Address Unknown Organization K01:LAB[facility]ATORY [facility] [place] - [address] [place] [address] Laboratory Report Ordering Provider Test Date Status TONYA HAMILTON 09/25/2024 15:10:36 Final Observation Date Value Abnormality Reference (Units ) Status Vitamin B12 09/25/2024 15:10:36 551 [id number] (pg/mL) Final Performing Location LAB[facility] - [address] [place] [address]
--- OUTSIDE RECORDS SUMMARY | 2024-11-27 02:54 | External Medical Summary ---
Author Name Unknown Address Unknown Organization [id number]:[facility] [place] [address] [place] [address] Laboratory Report Ordering Provider Test Date Status TONYA HAMILTON 11/06/2024 13:24:23 Final Observation Date Value Abnormality Reference (Units ) Status Folic Acid 11/06/2024 13:24:23 >20.0 >4.5 (ng/ mL) Final Performing Location LAB[facility] - [address] [place] [address]
--- OUTSIDE RECORDS SUMMARY | 2024-11-27 02:54 | External Medical Summary | Summary of Care ---
Author Name Unknown Organization [facility] Address [address] [facility] [place] [address] Phone [phone] Care Team Providers Care Repairer Cylinder Heads Name Role Phone Paayl Qureshi PA-C Primary Care Provider Encounter Details Date Type Department Care Team (Late st Contact Info) Description 11/06/2024 Telephone Gynecology/Obstetrics Kelli Martinez [address] [place] [address] Odette Marinelli PA-C [address] [place] [address] Allergies No known active allergiesdocumented as of this encounter (statuses as of 11/06/2024) Medications 27-0.8 MG Oral Tablet Take by mouth. Active Aspirin 81 MG Oral Tablet Chewable (Aspirin 81) Take 1 Tablet by mouth in the morning. Active B-12 50 MCG Oral Tablet Take by mouth. Active Iron 325 (65 Fe) MG Oral Tablet Take by mouth. Active documented as of this encounter (statuses as of 11/06/2024) Active Problems Problem Noted Date Diagnosed Date [...] as of this encounter (statuses as of 11/06/2024) Resolved Problems Problem Noted Date Diagnosed Date Resolved Date Supervision of high-risk pre gnancy, unspecified trimester 09/30/2021 06/07/2022 Overview (10/04/2021): [facility] A+, rubella immune, HIV neg, RPR non-reactive documented as of this encounter (statuses as of 11/06/2024) Immunizations Name Administration Dates Next Due COVID-19 mRNA, LNP-s, No Pre serve, 2-Dose Series ([employer]) 07/22/2022,07/01/2022 DTaP Dipth/Tet/Acell Pertussis (Infanrix), Peds 12/01/2003,06/20/2000,06/22/1999,04/29,02/26/1999 [...] = 0.6 oz pur e alcohol) occ Hunger Vital Sign Answer Date Recorded Worried About Running Out of Food in the Last Ye ar Not on file 11/06/2024 Within the past 12 months, t he food you bought just didn't last and you didn't have money to get more. Never true 11/06/2024 [place] Depression Scale Answer Date Recorded [place] Depression Scale Total 0 11/06/2024 The thought of harming myself has occurred to me . Never 11/06/2024 Childcare Answer Date Recorded Do you feel overwhelmed with taking care of a child, family member or friend? No 11/06/2024 Does your family need help f inding childcare? (Household - for ages 0-17 years) Not on file 11/06/2024 Clothing Answer Date Recorded Have you been unable to get clothing when it was really needed? No 11/06/2024 Is your family able to get c lothes or diapers when needed? (Household - for ages 0-17 years) Not on file 11/06/2024 Personal Safety Answer Date Recorded Do you feel unsafe or have concerns for your saf ety? No 11/06/2024 Do you have concerns for you r family's safety? (Household - for ages 0-17 years) Not on file 11/06/2024 Utilities Answer Date Recorded Do you have trouble paying y our heating, water, or electric bill? No 11/06/2024 Is your family able to pay t he heat, water, or electric bill? (Household - for ages 0-17 years) Not on file 11/06/2024 Does your family have access to good internet? (Household - for ages 0-17 years) Not on file 11/06/2024 Employment Status Answer Date Recorded Are you unemployed or without regular income? No 11/06/2024 Does the household have a re gular source of income? (Household - for ages 0-17 years) Not on file 11/06/2024 Social Connections Answer Date Recorded How often do you feel lonely or isolated from th ose around you? Never 11/06/2024 Financial Resource Strain Answer Date R ecorded Do you have any trouble payi ng for your medications, or do you think you might in the future? No 11/06/2024 Does your family have troubl e paying for medicine? (Household - for ages 0-17 years) Not on file 11/06/2024 Transportation Needs Answer Date Record ed Do you have trouble getting a ride to medical visits or work? (Adult - for ages 18 years and over) Not on file 11/06/2024 Does your family have a hard time getting a ride to doctors visits? (Household - for ages 0-17 years) Not on file 11/06/2024 Has lack of transportation k ept you from medical appointments, meetings, work, or from getting things needed for daily living? Check all that apply. No 11/06/2024 Do you (or your family) have trouble finding or paying for a ride (transportation)? (Household - for ages 0-17 years) Not on file 11/06/2024 Housing Stability Answer Date Recorded Do you currently live in a s helter or have no steady place to sleep at night? No 11/06/2024 Do you think you are at risk of becoming homeless? (Adult - for ages 18 years and over) Not on file 11/06/2024 Does your family worry about paying for your home or becoming homeless? (Household - for ages 0-17 years) Not on file 0 11/06/2024 Are you homeless or worried that you might be in the future? No 11/06/2024 Are you (or your family) veronika eless or worried that you might be in the future? (Household - for ages 0-17 years) Not on file Food Insecurity Answer Date Recorded Do you need food for this week? No 11/06/2024 Are you able to get enough f ood for your family? (Household - for ages 0-17 years) Not on file 11/06/2024 Does your family need food t his week? (Household - for ages 0-17 years) Not on file 11/06/2024 Do you always have enough fo od for your family? (Household - for ages 0-17 years) Not on file 11/06/2024 Estimated Date of Delivery Comme nts Yes [...] encounter Miscellaneous Notes * Telephone Encounter - Barbara Calix LPN - 11/06/2024 3:42 PM EST ----- Message from Odette Marinelli sent at 11/06/2024 3:41 PM EST ----- Please inform patient her recent CBC resulted WNL. Will continue to monitor. Thanks! Odette Marinelli PA-C documented in this encounter Plan of Treatment Upcoming Encounters Date Type Department Care Team (Late st Contact Info) Description 11/25/2024 9:00 AM EST Office Visit Gynecology/Obstetrics [facility] [address] [place] [address] Nina Garcia PA-C [address] [place] [address] 12/03/2024 3:30 PM EST Office Visit Gynecology/Obstetrics [facility] [address] [place] [address] Odette Marinelli PA-C [address] [place] [address] 12/09/2024 3:45 PM EST Office Visit Gynecology/Obstetrics Kelli Martinez [address] [place] [address] Renae Malik, DNP, CNM [address] [place] [address] Health Maintenance Due Date Last Done Comments Depression Screening 2010 HPV (Gardasil) Vaccine (1 - 3-dose series) 2013 Hepatitis C Screening 2016 COVID-19 Vaccine ( season) 2024 07/22/2022, 07/01/2022 Influenza Vaccine (FLU shot) (#1) 2024 08/21/2018, 2004 GFR 11/06/2025 11/06/2024, 08/31, 04/13/2022 Pap Smear 05/10/2027 05/10/2024, 08/21/2020 DTap/Tdap Vaccines (10 - Td or Tdap) 09/25/2034 09/25/2024, 02/24/2022, 04/01/2019, Additional history exists MENINGOCOCCAL (MENACTRA/MENVEO) Completed 06/13/2016, 07/14/2010 Hepatitis B Vaccine Completed 01/25/2019, 09/24/2018, 07/20/2018, Additional history exists Gonorrhea / Chlamydia Screen Discontinued 05/10/2024, 09/30/2021, 03/11/2019 Pneumococcal Vaccine: Pediatrics (0 to 5 Years) and At-Risk Patients (6 to 18 Years and 19+ Years) Aged Out No longer eligib le based on patient's age to complete this topic documented as of this encounter Medical Devices Not on filedocumented as of this encounter Care Teams Repairer Cylinder Heads Relationship Specialty Start Date End Date Payal Qureshi PA-C [address] [place] [phone] PCP - General Physician Title Vehicle Service Attendant 02/25/21 documented as of this encounter
--- OUTSIDE RECORDS SUMMARY | 2024-11-27 02:54 | External Medical Summary | Summary of Care ---
Author Name Unknown Organization [facility] Address [address] [facility] [place] [address] Phone [phone] Care Team Providers Care Event Sales Representative Name Role Phone Payal Qureshi PA-C Primary Care Provider Reason for Visit * Reason Comments Return Visit Encounter Details Date Type Department Care Team (Late st Contact Info) Description 11/21/2024 8:30 AM EST Office Visit Gynecology/Obstetric s Kelli Martinez [address] [place] [address] Odette Marinelli PA-C [address] [place] [address] headache in third trimester*; History of gestational hypertension; Encounter for supervision of other normal , unspecified trimester; Antepartum anemia complicating Allergies No known active allergiesdocumented as of this encounter (statuses as of 11/21/2024) Medications 27-0.8 MG Oral Tablet Take by mouth. Active Aspirin 81 MG Oral Tablet Chewable (Aspirin 81) Take 1 Tablet by mouth in the morning. Active B-12 50 MCG Oral Tablet Take by mouth. Active Iron 325 (65 Fe) MG Oral Tablet Take by mouth. Active documented as of this encounter (statuses as of 11/21/2024) Active Problems Problem Noted Date Diagnosed Date Antepartum anemia complicating 024 Overview (11/07/2024): Hgb 11.8 with third tri labs One once daily oral iron Repeat Hgb 11.4 at 34 weeks INFORMATION 09/25/2024 Overview (09/25/2024): Daughter in Law of jerzy Cordova Encounter for supervision of other normal , unspecified trimester 08/02/2024 Gestational hypertension wit hout significant proteinuria in third trimester 04/14/2022 Overview (08/02/2024): GHTN with first Estimated Date of Delivery Comme nts Yes 12/17/2024 Based on last me nstrual period of 03/12/2024 documented as of this encounter (statuses as of 11/21/2024) Resolved Problems Problem Noted Date Diagnosed Date Resolved Date Supervision of high-risk pre gnancy, unspecified trimester 09/30/2021 06/07/2022 Overview (10/04/2021): Labs through [facility]: A+, rubella immune, HIV neg, RPR non-reactive documented as of this encounter (statuses as of 11/21/2024) Immunizations Name Administration Dates Next Due COVID-19 [...] money to get more. Never true 11/06/2024 [place] Depression Scale Answer Date Recorded [place] Depression Scale Total 0 11/06/2024 The thought [...] 11/06/2024 Does the household have a re lar source of income? (Household - for ages [...] on file documented as of this encounter Last Filed Vital Signs Vital Sign Reading Time Taken Comments Blood Pressure 130/84 11/21/2024 8:33 AM EST Pulse - - Temperature - - Respiratory Rate - - Oxygen Saturation - - Inhaled Oxygen Concentration - - Weight 75.8 kg (167 lb) 11/21/2024 8:33 AM EST Height 154.3 cm (5' 0.75") 11/21/2024 8:33 AM ES T Body Mass Index 31.81 11/21/2024 8:33 AM EST documented in this encounter Progress Notes * Odette Marinelli PA-C - 11/21/2024 8:37 AM EST Radha Cordova is a 23 year old female here for problem visit at 36w2d Her Estimated Date of Delivery: 12/17/24 Over the last few weeks, she has noticed an increase in headaches that Tylenol do not help much. Has been slightly nauseous today as well. Saw black spots in her vision over the weekend. Denies chest pain, RUQ pain. Has had an increase in swelling primarily to her hands. She affirms movement. Denies vaginal bleeding, LOF, contractions. Has had some slight pelvic pain, similar to early menstrual cramps. PHYSICAL EXAM BP 130/84 | Ht 1.543 m (5' 0.75") | Wt 75.8 kg (167 lb) | LMP 03/12/2024 | BMI 31.81 kg/m | BSA 1.8 m +FHT 140s ASSESSMENT/PLAN headache in third trimester (Primary) - URINALYSIS OBSTETRICS, POINT OF CARE - PROTEIN/ CREATININE RATIO, URINE - URINE PROTEIN, 24 HOUR - COMPREHENSIVE METABOLIC PANEL; Future; Expected date: 11/21/2024 History of gestational hypertension - URINALYSIS OBSTETRICS, POINT OF CARE - PROTEIN/ CREATININE RATIO, URINE - URINE PROTEIN, 24 HOUR - COMPREHENSIVE METABOLIC PANEL; Future; Expected date: 11/21/2024 Encounter for supervision of other normal , unspecified trimester Antepartum anemia complicating Supervision of - discussed GBS and to expect swab to be complete at next visit - labor precautions and kick counts reviewed - gave migraine cocktail information. Encouraged 100-120 ounces of water intake daily. - pre eclampsia warning signs given. Does check BP at home, advised when to call with elevated readings. Gave contact phone numbers. RTO for scheduled THEO/GBS on 11/25. Electing to keep this appointment to re-check BP. Odette Marinelli PA-C 11/21/2024 documented in this encounter Nursing Notes * Kaity Stratton LPN - 11/21/2024 8:34 AM EST 36w2d Headache off and on for about a week. Tylenol helps minimally. Saw "stars" over the weekend. +nausea. documented in this encounter Plan of Treatment Upcoming Encounters Date Type Department Care Team (Late st Contact Info) Description 11/25/2024 9:00 AM EST Office Visit Gynecology/Obstetrics [facility] [address] [place] [address] Nina Garcia PA-C [address] [place] [address] 12/03/2024 3:30 PM EST Office Visit Gynecology/Obstetrics [facility] [address] [place] [address] Odette Marinelli PA-C [address] [place] [address] 12/09/2024 3:45 PM EST Office Visit Gynecology/Obstetrics [facility] [address] [place] [address] Renae Malik, [facility], CN [address] [place] [address] Scheduled Orders Name Type Priority Associated Diagnoses Orde r Schedule PROTEIN/ CREATININE RATIO, URINE Lab Routine headache in third trimester History of gestational hypertension Ordered: 11/21/2024 URINE PROTEIN, 24 HOUR Lab Routine headache in third trimester History of gestational hypertension Ordered: 11/21/2024 COMPREHENSIVE METABOLIC PANEL Lab Routine headache in third trimester History of gestational hypertension Expected: 11/21/2024, Expires: 11/21/2025 Health Maintenance Due Date Last Done Comments [...] Not on filedocumented as of this encounter Procedures Procedure Name Priority Date/Time Associated Diagnosis Comments URINALYSIS OBSTETRICS, POINT OF CARE Routine 11/21/2024 8:40 AM EST headache in third trimester History of gestational hypertension documented in this encounter Results * (ABNORMAL) URINALYSIS OBSTETRICS, POINT OF CARE (11/21/2024 8:40 AM EST) Color, Urine Yellow Light Yellow, Yellow 11/21/2024 8:44 AM EST LAB[facility] [place] [facility]10 Clarity, Urine Clear Clear 11/21/2024 8:44 AM EST [facility] [place] [facility]10 Glucose, Urine Negative Negative mg/dL 11/21/2024 8:44 AM EST [facility] [place] [facility]10 Bilirubin, Urine Negative Negative 11/21/2024 8:44 AM EST [facility] [place] [facility]10 Ketone, Urine Negative Negative mg/dL 11/21/2024 8:44 AM EST [facility] [place] [facility] Specific [place], Urine 1.020 1.003 - 1.030 11/21/2024 8:44 AM EST [facility] [place] [facility] Blood, Urine Negative Negative 11/21/2024 8:44 AM EST [facility] [place] [facility]10 pH, Urine 7.0 5.0, 5.5, 6.0, 6.5, 7.0, 7.5 units 11/21/2024 8:44 AM EST [facility] [place] [facility]10 Protein, Urine Negative Negative mg/dL 11/21/2024 8:44 AM EST [facility] [place] [facility]10 Urobilinogen, Urine 0.2 0.2, 1.0 mg/dL 11/21/2024 8:44 AM EST [facility] 57-10 Nitrite, Urine Negative Negative 11/21/2024 8:44 AM EST [facility] [place] [facility] 57-10 Esterase, Urine Trace(A) Negative 11/21/2024 8:44 AM EST [facility] [place] [facility] Urine 11/21/2024 8:40 AM EST 11/21/2024 8:44 AM EST us Odette Marinelli PA-C LAB POINT OF CARE TEST DOCKED DEVICE UNSOLICITED RESULTS Final Result [facility] [place] [facility]10 [address] [facility] [place] [address] documented in this encounter Visit Diagnoses Diagnosis headache in third trimester- Primary History of gestational hypertension Encounter for supervision of other normal , unspecified trimester Antepartum anemia complicating Anemia, antepartum documented in this encounter Care Teams Event Sales Representative Relationship Specialty Start Date End Date Payal Qureshi PA-C [address] [place], [place] [address] [id number] PCP - General Physician Research Associate Quality Control Qc 02/25/21 documented as of this encounter
--- OUTSIDE RECORDS SUMMARY | 2024-11-27 02:54 | External Medical Summary ---
Author Name Unknown Address Unknown Organization [id number]:[facility] [place] [address] [place] [address] Laboratory Report Ordering Provider Test Date Status TONYA HAMILTON 09/25/2024 15:10:36 Final Observation Date Value Abnormality Reference (Units ) Status Folic Acid 09/25/2024 15:10:36 >20.0 >4.5 (ng/ mL) Final Performing Location [facility] - [address] [place] [address]
--- OUTSIDE RECORDS SUMMARY | 2024-11-27 02:54 | External Medical Summary ---
Author Name Unknown Address Unknown Organization [id number]:[facility] [place] [facility] [place] [address] Laboratory Report Ordering Provider Test Date Status TONYA HAMILTON 11/06/2024 13:24:23 Final Observation Date Value Abnormality Reference (Units ) Status Retic, % (auto) 11/06/2024 13:24:23 2.34 Above high normal 0.80-1.90 (%) Final Reticulocytes, Absolute 11/06/2024 13:24:23 91.0 31.3-100.1 (K/uL) Final Reticulocyte fraction, immature 11/06/2024 13:24:23 28.0 Above high normal 2.5-20.6 (%) Final Reticulocyte HGB 11/06/2024 13:24:23 33.0 29.7-37.4 (pg) Final Performing Location [facility] [place] [address] [place] [address]
--- OUTSIDE RECORDS SUMMARY | 2024-11-27 02:54 | External Medical Summary | Summary of Care ---
Author Name Unknown Organization [facility] Address [address] [facility] [place] [address] Phone [phone] Care Team Providers Care Systems Trainer Name Role Phone Payal Qureshi PA-C Primary Care Provider Reason for Visit * Reason Comments Return Visit Encounter Details Date Type Department Care Team (Late st Contact Info) Description 10/24/2024 10:45 AM EST Office Visit Gynecology/Obstetric s [facility]elli Martinez [address] [place] [address] Griselda Capps CRNP [address] [place] [address] Encounter for supervision of other normal in second trimester*; Gestational hypertension without significant proteinuria in third trimester; INFORMATION; Antepartum anemia complicating Allergies No known active allergiesdocumented as of this encounter (statuses as of 10/24/2024) Medications 27-0.8 MG Oral Tablet Take by mouth. Active Aspirin 81 MG Oral Tablet Chewable (Aspirin 81) Take 1 Tablet by mouth in the morning. Active B-12 50 MCG Oral Tablet Take by mouth. Active Iron 325 (65 Fe) MG Oral Tablet Take by mouth. Active documented as of this encounter (statuses as of 10/24/2024) Active Problems Problem Noted Date Diagnosed Date [...] as of this encounter (statuses as of 10/24/2024) Resolved Problems Problem Noted Date Diagnosed Date Resolved Date Supervision of high-risk pre gnancy, unspecified trimester 09/30/2021 06/07/2022 Overview (10/04/2021): Labs through [facility]: A+, rubella immune, HIV neg, RPR non-reactive documented as of this encounter (statuses as of 10/24/2024) Immunizations Name Administration Dates Next Due COVID-19 [...] MCV4P Conjugat e Vaccine (Menactra) 06/13/2016,07/14/2010 PPD 08/03/2022, 2,03/01/2021,11/09,10/31/2018,02/02/2018 Rotavirus Vacc, Attenuated 2 dose (Rotarix) 04/29/1999 [...] = 0.6 oz pur e alcohol) occ [place] Depression Scale Answer Date Recorded [place] Depression Scale Total 5 06/21/2024 The thought [...] Sign Reading Time Taken Comments Blood Pressure 118/78 10/24/2024 10:57 AM EST Pulse - - Temperature - - Respiratory Rate - - Oxygen Saturation - - Inhaled Oxygen Concentration - - Weight 71.3 kg (157 lb 3.2 oz) 10/24/2024 10:57 AM EST Height - - Body Mass Index 29.95 10/10/2024 3:12 PM EST documented in this encounter Progress Notes * Griselda Capps CRNP - 10/24/2024 11:10 AM EST 32w2d Complaints: none Feeling well overall. Good FM. No contractions, bleeding, or LOF. Taking iron as directed. CBC with next visit. CHANDLER Weiss * Cleopatra Chawla CMA - 10/24/2024 10:57 AM EST 32w2d Denies any concerns documented in this encounter Plan of Treatment [...] Not on filedocumented as of this encounter Visit Diagnoses Diagnosis Encounter for supervision of other normal in second trimester- Primary Gestational hypertension without significant proteinuria in third trimester Transient hypertension of , antepartum INFORMATION Antepartum anemia complicating Anemia, antepartum documented in this encounter Care Teams Systems Trainer Relationship Specialty Start Date End Date Payal Qureshi PA-C [address] [place] [address] [place] [id number] PCP - General Physician Mine Motor Engineer 02/25/21 documented as of this encounter
--- OUTSIDE RECORDS SUMMARY | 2024-11-27 02:54 | External Medical Summary ---
Author Name Unknown Address Unknown Organization K01:[facility]ATORY [facility] - [address] [place] [address] Laboratory Report Ordering Provider Test Date Status TONYA HAMILTON 11/06/2024 13:24:23 Final Observation Date Value Abnormality Reference (Units ) Status Vitamin B12 11/06/2024 13:24:23 853 [id number] (pg/mL) Final Performing Location [facility] - [address] [place] [address]
--- OUTSIDE RECORDS SUMMARY | 2024-11-27 02:54 | External Medical Summary | Summary of Care ---
Author Name Unknown Organization [facility] Address [address] [facility] [place] [address] Phone [phone] Care Team Providers Care Tacker Off Name Role Phone Payal Qureshi PA-C Primary Care Provider Reason for Visit * Reason Comments Return Visit Encounter Details Date Type Department Care Team (Late st Contact Info) Description 10/10/2024 3:15 PM EST Office Visit Gynecology/Obstetric [facility] [address] [place] [address] Shira Berrios MD [address] [place] [address] 30 weeks gestation of *; Antepartum anemia complicating Allergies No known active allergiesdocumented as of this encounter (statuses as of 10/10/2024) Medications 27-0.8 MG Oral Tablet Take by mouth. Active Aspirin 81 MG Oral Tablet Chewable (Aspirin 81) Take 1 Tablet by mouth in the morning. Active B-12 50 MCG Oral Tablet Take by mouth. Active Iron 325 (65 Fe) MG Oral Tablet Take by mouth. Active documented as of this encounter (statuses as of 10/10/2024) Active Problems Problem Noted Date Diagnosed Date [...] as of this encounter (statuses as of 10/10/2024) Resolved Problems Problem Noted Date Diagnosed Date Resolved Date Supervision of high-risk pre gnancy, unspecified trimester 09/30/2021 06/07/2022 Overview (10/04/2021): Labs through [facility]: A+, rubella immune, HIV neg, RPR non-reactive documented as of this encounter (statuses as of 10/10/2024) Immunizations Name Administration Dates Next Due COVID-19 [...] = 0.6 oz pur e alcohol) occ [place] Depression Scale Answer Date Recorded [place] Depression Scale Total 5 06/21/2024 The thought [...] Sign Reading Time Taken Comments Blood Pressure 118/70 10/10/2024 3:12 PM EST Pulse - - Temperature - - Respiratory Rate - - Oxygen Saturation - - Inhaled Oxygen Concentration - - Weight 70.3 kg (155 lb) 10/10/2024 3:12 PM EST Height 154.3 cm (5' 0.75") 10/10/2024 3:12 PM ES T Body Mass Index 29.53 10/10/2024 3:12 PM EST documented in this encounter Progress Notes * Shira Berrios MD - 10/10/2024 3:27 PM EST Radha Cordova is a 23 year old female here for her routine OB appointment at 30w2d Her Estimated Date of Delivery: 12/17/24 REVIEW OF SYSTEMS: She affirms movement. Denies vaginal bleeding, LOF, contractions, N/V, headaches PHYSICAL EXAM: Filed Vitals: 10/10/24 1512 BP: 118/70 Weight: 70.3 kg (155 lb) Height: 1.543 m (5' 0.75") +FHT 147 bpm Fundal height 30 cm ASSESSMENT/PLAN: (O99.019) Antepartum anemia complicating Plan: Patient is taking oral iron supplementation. (Z3A.30) 30 weeks gestation of (primary encounter diagnosis) Plan: - recommended flu vaccine - patient declined today - labor precautions and kick counts reviewed - RTO in 2 weeks Shira Berrios MD documented in this encounter Nursing Notes * Kaity Stratton LPN - 10/10/2024 3:15 PM EST 30w2d Denies concerns documented in this encounter Plan of Treatment Upcoming Encounters Date Type Department Care Team (Late st Contact Info) Description 10/24/2024 10:45 AM EST Office Visit Gynecology/Obstetrics [facility] [address] [place] [address] Griselda Capps CRNP [address] [place] [address] Health Maintenance Due Date Last Done Comments Depression Screening 2010 HPV (Gardasil) Vaccine (1 - 3-dose series) 2013 Hepatitis C Screening 2016 COVID-19 Vaccine ( - season) 2024 07/22/2022, 07/01/2022 Influenza Vaccine (FLU [...] as of this encounter Visit Diagnoses Diagnosis 30 weeks gestation of - Primary state, incidental Antepartum anemia complicating Anemia, antepartum documented in this encounter Care Teams Tacker Off Relationship Specialty Start Date End Date Payal Qureshi PA-C [address] [place], [place] [address] [phone] PCP - General Physician Choker Setter 02/25/21 documented as of this encounter
--- OUTSIDE RECORDS SUMMARY | 2024-11-27 02:54 | External Medical Summary | Summary of Care ---
Author Name Unknown Organization [facility] Address [address] [facility] [place] [address] Phone [phone] Care Team Providers Care Electrical Maintenance Technician Name Role Phone Payal Qureshi PA-C Primary Care Provider Reason for Visit * Reason Comments Return Visit Encounter Details Date Type Department Care Team (Late st Contact Info) Description 11/06/2024 1:00 PM EST Office Visit Gynecology/Obstetric s [facility] [address] [place] [address] Nina Garcia PA-C [address] [place] [address] Encounter for supervision of other normal , unspecified trimester*; Gestational hypertension without significant proteinuria in [...] trimester 09/30/2021 06/07/2022 Overview (10/04/2021): [facility]: A+, rubella immune, HIV neg, RPR non-reactive [...] money to get more. Never true 11/06/2024 [place] Depression Scale Answer Date Recorded [place] Depression Scale Total 5 06/21/2024 The thought of harming myself has occurred to me . Never 06/21/2024 Childcare Answer Date Recorded Do you feel [...] Sign Reading Time Taken Comments Blood Pressure 108/72 11/06/2024 12:58 PM EST Pulse - - Temperature - - Respiratory Rate - - Oxygen Saturation - - Inhaled Oxygen Concentration - - Weight 73 kg (161 lb) 11/06/2024 12:58 PM EST Height 154.3 cm (5' 0.75") 11/06/2024 12:[address] Body Mass Index 30.67 11/06/2024 12:58 PM EST documented in this encounter Progress Notes * Nina Garcia PA-C - 11/06/2024 1:13 PM EST 34w1d Intermittent RUQ pain. Pain over lateral ribs suspect MSK. Blood pressure remains normal. - Perez sign. Worse with activity. Has been more active getting nursery ready and painting. Denies VB, LOF, contractions. Baby is active. Repeat CBC today. Taking PO iron through started taking away from calcium and toincrease absorption as not aware shouldn't take with them. GBS next visit RTC in 2 weeks Nina Garcia PA-C documented in this encounter Nursing Notes * Kaity Stratton LPN - 11/06/2024 1:02 PM EST Discuss right sided pain, relieved with movement. Cbc today. Reviewed labor instructions. documented in this encounter Plan of Treatment Upcoming Encounters Date Type Department Care Team (Late st Contact Info) Description 11/25/2024 9:00 AM EST Office Visit Gynecology/Obstetrics [facility] [address] [place] [address] Nina Garcia PA-C [address] [place] [address] 12/03/2024 3:30 PM EST Office Visit Gynecology/Obstetrics [facility] [address] [place] [address] Odette Marinelli PA-C [address] [place] [address] 12/09/2024 3:45 PM EST Office Visit Gynecology/Obstetrics [facility] [address] [place] [address] Renae Malik, LES, CNM [address] [place] [address] Pending Results Name Type Priority Associated Diagnoses Date /Time CBC WITH WBC DIFFERENTIAL AND ANEMIA REFLEX WORKUP Lab Routine Antepartum anemia complicating 11/06/2024 1:24 PM EST Scheduled Orders Name Type Priority Associated Diagnoses Orde r Schedule CBC WITH WBC DIFFERENTIAL AND ANEMIA REFLEX WORKUP Lab Routine Antepartum anemia complicating Expected: 11/06/2024, Expires: 11/06/2025 Health Maintenance Due Date Last Done Comments Depression Screening 2010 HPV (Gardasil) Vaccine (1 - 3-dose series) 2013 Hepatitis C Screening 2016 COVID-19 Vaccine (3 season) 2024 07/22/2022, 07/01/2022 Influenza Vaccine (FLU [...] Diagnosis Encounter for supervision of other normal , unspecified trimester- Primary Gestational hypertension without significant proteinuria in third trimester Transient hypertension of , antepartum INFORMATION Antepartum anemia complicating Anemia, antepartum documented in this encounter Care Teams Electrical Maintenance Technician Relationship Specialty Start Date End Date Payal Qureshi PA-C [address] [place] [address] [place] [id number] PCP - General Physician Roving Carrier 02/25/21 documented as of this encounter
--- OUTSIDE RECORDS SUMMARY | 2024-11-27 02:54 | External Medical Summary | Summary of Care ---
Author Name Unknown Organization [facility] Address [address] [facility] [address] Phone [phone] Care Team Providers Care Punch Press Feeder Name Role Phone Payal Qureshi PA-C Primary Care Provider Reason for Visit * Reason Comments Outpatient Testing Encounter Details Date Type Department Care Team (Late st Contact Info) Description 11/06/2024 1:20 PM EST Laboratory Laboratory, [facility] [place] [facility] [address] [facility] [address] [facility] [address] [place] [address] Antepartum anemia complicating Allergies No known active [...] trimester 09/30/2021 06/07/2022 Overview (10/04/2021): Labs through [facility]: A+, rubella immune, HIV neg, RPR [...] money to get more. Never true 11/06/2024 [place] Depression Scale Answer Date Recorded [place] Depression Scale Total 5 06/21/2024 The thought [...] on file documented as of this encounter Plan of Treatment Upcoming Encounters Date Type Department Care Team (Late st Contact Info) Description 11/25/2024 9:00 AM EST [facility] [address] [place] [address] Nina Garcia PA-C [address] [place] [address] 12/03/2024 3:30 PM EST Office Visit Gynecology/Obstetrics [facility] [address] [place] [address] Odette Marinelli PA-C [address] [place] [address] 12/09/2024 3:45 PM EST Office Visit Gynecology/Obstetrics [facility] [place] [address] [place] [address] Renae Malik, DNP, CNM [address] [place] [address] Pending Results Name Type Priority Associated Diagnoses Date /Time CBC WITH WBC DIFFERENTIAL AND ANEMIA REFLEX WORKUP Lab Routine Antepartum anemia complicating 11/06/2024 1:24 PM EST ANEMIA CBC Lab Routine Antepartum anemia complicating 11/06/2024 1:24 PM EST DIFFERENTIAL, AUTOMATED Lab Routine Antepartum anemia complicating 11/06/2024 1:24 PM EST ANEMIA REFLEX CHEMISTRY HOLD Lab Routine Antepartum anemia complicating 11/06/2024 1:24 PM EST Health Maintenance Due Date Last Done Comments [...] as of this encounter Visit Diagnoses Diagnosis Antepartum anemia complicating Anemia, antepartum documented in this encounter Care Teams Punch Press Feeder Relationship Specialty Start Date End Date Payal Qureshi PA-C [address] [place] [address] [place] [phone] PCP - General Physician Electronic Scale Subassembler 4/29/21 documented as of this encounter
--- OUTSIDE RECORDS SUMMARY | 2024-11-27 02:54 | External Medical Summary | Summary of Care ---
Author Name Unknown Organization [facility] Address [address] [facility] [place] [address] Phone [phone] Care Team Providers Care Solid Plasterer Name Role Phone Payal Qureshi PA-C Primary Care Provider Encounter Details Date Type Department Care Team (Late st Contact Info) Description 11/06/2024 Telephone Gynecology/Obstetrics Kelli Martinez [address] [place] [address] Odette Marinelli PA-C [address] [place] [address] Allergies No known active allergiesdocumented as of [...] trimester 09/30/2021 06/07/2022 Overview (10/04/2021): [facility] A+, rubella immune, HIV neg, RPR non-reactive documented as of this encounter (statuses as of 11/06/2024) Immunizations Name Administration Dates Next Due COVID-19 mRNA, LNP-s, No Pre serve, 2-Dose Series (DeNovaMed) 07/22/2022,07/01/2022 DTaP Dipth/Tet/Acell Pertussis (Infanrix), Peds 12/01/2003,06/20/2000,06/22/1999,04/29,02/26/1999 [...] money to get more. Never true 11/06/2024 [place] Depression Scale Answer Date Recorded [place] Depression Scale Total 0 11/06/2024 The thought [...] Message from Odette Marinelli sent at 11/06/2024 3:42 PM EST ----- Addendum to previous result note - patient's CMP## not CBC resulted WNL. Thanks! Odette Marinelli PA-C documented in this encounter Plan of Treatment Upcoming Encounters Date Type Department Care Team (Late st Contact Info) Description 11/25/2024 9:00 AM EST Office Visit Gynecology/Obstetrics [facility] [address] [place] [address] Nina Garcia PA-C [address] [place] [address] 12/03/2024 3:30 PM EST Office Visit Gynecology/Obstetrics [facility] [address] [place] [address] Odette Marinelli PA-C [address] [place] [address] 12/09/2024 3:45 PM EST Office Visit Gynecology/Obstetrics Kelli Martinez [address] [place] [address] Renae Malik, DNP, CNM [address] [place] [address] Health Maintenance Due Date Last Done Comments [...] filedocumented as of this encounter Care Teams Solid Plasterer Relationship Specialty Start Date End Date Payal Qureshi PA-C [address] [place], [place] [address] [phone] PCP - General Physician Aircraft Engine Installer 02/25/21 documented as of this encounter
--- OUTSIDE RECORDS SUMMARY | 2024-11-27 02:54 | External Medical Summary | Summary of Care ---
Author Name Unknown Organization [facility] [address] [place] [address] Phone [phone] Care Team Providers Care Strap Cutter Name Role Phone Payal Qureshi PA-C Primary Care Provider Reason for Visit * Reason Comments Outpatient Testing Encounter Details Date Type Department Care Team (Late st Contact Info) Description 09/25/2024 1:50 PM EST Laboratory [facility] [address] [facility] [address] [facility] [address] [place] [address] Encounter for supervision of other normal , unspecified trimester Allergies No known active allergiesdocumented as of this encounter (statuses as of 09/25/2024) Medications 27-0.8 MG Oral Tablet Take by mouth. Active documented as of this encounter (statuses as of 09/25/2024) Active Problems Problem Noted Date Diagnosed Date INFORMATION 09/25/2024 Overview (09/25/2024): Daughter in Law of jerzy Cordova Encounter for supervision of other normal , unspecified trimester 08/02/2024 Gestational hypertension wit hout significant proteinuria in third trimester 04/14/2022 Overview (08/02/2024): GHTN with first Estimated Date of Delivery Comme nts Yes 12/17/2024 Based on last me nstrual period of 03/12/2024 documented as of this encounter (statuses as of 09/25/2024) Resolved Problems Problem Noted Date Diagnosed Date Resolved Date Supervision of high-risk pre gnancy, unspecified trimester 09/30/2021 06/07/2022 Overview (10/04/2021): Labs through [facility]: A+, rubella immune, HIV neg, RPR non-reactive documented as of this encounter (statuses as of 09/25/2024) Immunizations Name Administration Dates Next Due COVID-19 [...] = 0.6 oz pur e alcohol) occ [place] Depression Scale Answer Date Recorded [place] Depression Scale Total 5 06/21/2024 The thought [...] as of this encounter Plan of Treatment Pending Results Name Type Priority Associated Diagnoses Date /Time SYPHILIS ANTIBODY SCREEN WITH REFLEX TO RPR Lab Routine Encounter for supervision of other normal , unspecified trimester 09/25/2024 3:10 PM EST CBC WITH WBC DIFFERENTIAL AND ANEMIA REFLEX WORKUP Lab Routine Encounter for supervision of other normal , unspecified trimester 09/25/2024 3:10 PM EST 50-G GESTATIONAL GLUCOSE, 1 HOUR Lab Routine Encounter for supervision of other normal , unspecified trimester 09/25/2024 3:10 PM EST SYPHILIS ANTIBODY SCREEN Lab Routine Encounter for supervision of other normal , unspecified trimester 09/25/2024 3:10 PM EST ANEMIA REFLEX CHEMISTRY HOLD Lab Routine Encounter for supervision of other normal , unspecified trimester 09/25/2024 3:10 PM EST RETICULOCYTE PANEL Lab Routine Encounter for supervision of other normal , unspecified trimester 09/25/2024 3:10 PM EST Health Maintenance Due Date Last Done Comments Depression Screening 2010 HPV (Gardasil) Vaccine (1 - 3-dose series) 2013 Hepatitis C Screening 2016 GFR 04/13/2023 04/13/2022 COVID-19 Vaccine ( season) 2024 07/22/2022, 07/01/2022 Influenza Vaccine (FLU shot) (#1) 2024 08/21/2018, 2004 Pap Smear 05/10/2027 05/10/2024, 08/21/2020 DTap/Tdap Vaccines [...] Procedure Name Priority Date/Time Associated Diagnosis Comments ANEMIA CBC Routine 09/25/2024 3:10 PM EST Encounter for supervision of other normal , unspecified trimester DIFFERENTIAL, AUTOMATED Routine 09/25/2024 3:10 PM EST Encounter for supervision of other normal , unspecified trimester documented in this encounter Results * (ABNORMAL) DIFFERENTIAL, AUTOMATED (09/25/2024 3:10 PM EST) WBC 9.92 4.00 - 10.80 K/uL 09/25/2024 3:22 PM EST [facility] [place] [facility] Neutrophils % 75.3(H) 40.0 - 75.0 % 09/25/2024 3:22 PM EST [facility] [place] [facility] Lymphocytes % 18.4 18.0 - 42.0 % 09/25/2024 3:22 PM EST [facility] [place] [facility] Monocytes % 6.0 1.0 - 11.0 % 09/25/2024 3:22 PM EST [facility] [place] [facility] Eosinophils % 0.2 0.0 - 6.0 % 09/25/2024 3:22 PM EST [facility] [place] Basophils % 0.1 0.0 - 2.0 % 09/25/2024 3:22 PM EST [facility] [place] Absolute Neutrophils 7.46 1.80 - 7.70 K/uL 09/25/2024 3:22 PM EST [facility] [place] [facility] Absolute Lymphocytes 1.83 1.00 - 4.80 K/ul 09/25/2024 3:22 PM EST [facility] [place] Absolute Monocytes 0.60 0.00 - 1.10 K/uL 09/25/2024 3:22 PM EST [facility] [place] Absolute Eosinophils 0.02 0.00 - 0.70 K/uL 09/25/2024 3:22 PM EST [facility] [place] [facility] Absolute Basophils 0.01 0.00 - 0.20 K/uL 09/25/2024 3:22 PM EST [facility] [place] [facility] Blood Venous blood specimen / Unknown Venipuncture / Unknown 09/25/2024 3:10 PM EST 09/25/2024 3:10 PM EST us Nina Garcia PA-C LAB BLOOD ORDERABLES Final R esult [facility] [address] [place] [address] * (ABNORMAL) ANEMIA CBC (09/25/2024 3:10 PM EST) WBC 9.92 4.00 - 10.80 K/uL 09/25/2024 3:22 PM EST [facility] [place] [facility] RBC 3.94 3.85 - 5.15 M/uL 09/25/2024 3:22 PM EST [facility] [place] [facility] HGB 11.8(L) 12.0 - 15.3 g/dL 09/25/2024 3:22 PM EST [facility] [place] [facility] Comment: Anemia reflex testing triggers on a HGB < 12.0 for Females and HGB < 13.0 for Males in accordance with the WHO Anemia Guidelines Anemia reflex testing triggers on a HGB < 12.0 for Females and HGB < 13.0 for Males in accordance with the WHO Anemia Guidelines HCT 35.6(L) 36.0 - 45.2 % 09/25/2024 3:22 PM EST [facility] [place] [facility] MCV 90.4 81.5 - 97.5 fL 09/25/2024 3:22 PM EST [facility] [place] MCH 29.9 27.0 - 34.0 pg 09/25/2024 3:22 PM EST [facility] [place] [facility] MCHC 33.1 32.0 - 36.0 g/dL 09/25/2024 3:22 PM EST [facility] [place] [facility] RDW 13.9 11.5 - 15.5 % 09/25/2024 3:22 PM EST [facility] [place] [facility] PLT 200 140 - 400 K/uL 09/25/2024 3:22 PM EST [facility] [place] [facility] MPV 9.7 6.6 - 11.1 fL 09/25/2024 3:22 PM EST [facility] [place] [facility] Blood Venous blood specimen / Unknown Venipuncture / Unknown 09/25/2024 3:10 PM EST 09/25/2024 3:10 PM EST us Nina Garcia PA-C LAB BLOOD ORDERABLES Final R esult [facility] [address] [facility] [place] [address] documented in this encounter Visit Diagnoses Diagnosis Encounter for supervision of other normal , unspecified trimester documented in this encounter Care Teams Strap Cutter Relationship Specialty Start Date End Date Payal Qureshi PA-C [address] [place], [place] [address] [phone] PCP - General Physician Service Captain 02/25/21 documented as of this encounter
--- OUTSIDE RECORDS SUMMARY | 2024-11-27 02:54 | External Medical Summary | Summary of Care ---
Author Name Unknown Organization [facility] Address [address] [facility] [place] [address] Phone [phone] Care Team Providers Care Financial Systems Analyst Name Role Phone Payal Qureshi PA-C Primary Care Provider Reason for Visit * Reason Comments Return Visit Encounter Details Date Type Department Care Team (Late st Contact Info) Description 09/25/2024 2:15 PM EST Office Visit Gynecology/Obstetric Kelli Martinez [address] [place] [address] Jose Rae MD [address] [place] [address] Gestational hypertension without significant proteinuria in third trimester*; Encounter for supervision of other normal , [...] trimester 09/30/2021 06/07/2022 Overview (10/04/2021): Labs through [facility]: A+, rubella immune, HIV neg, RPR [...] = 0.6 oz pur e alcohol) occ [place] Depression Scale Answer Date Recorded [place] Depression Scale Total 5 06/21/2024 The thought [...] Sign Reading Time Taken Comments Blood Pressure 122/64 09/25/2024 2:02 PM EST Pulse - - Temperature - - Respiratory Rate - - Oxygen Saturation - - Inhaled Oxygen Concentration - - Weight 68.9 kg (152 lb) 09/25/2024 2:02 PM EST Height 154.3 cm (5' 0.75") 09/25/2024 2:02 PM ES T Body Mass Index 28.96 09/25/2024 2:02 PM EST documented in this encounter Progress Notes * Jose Rae MD - 09/25/2024 2:46 PM EST Pt doing well N[place]oma[place]aints RTC 2 weeks GTT pending documented in this encounter Nursing Notes * Kaity Stratton LPN - 09/25/2024 2:24 PM EST Patient here for tdap injection. Patient doing well no complaints. Injection given IM as ordered. Patient tolerated well. Patient to follow up as directed. Patient instructed to call if any complications. Patient verbalized understanding of instructions given and her follow up appt for THEO Injection site: Left Deltoid Medication Source: Dispensed stock medication * Kaity Stratton LPN - 09/25/2024 2:24 PM EST [id number] Completing 28wk labs today Tdap today documented in this encounter Plan of Treatment [...] as of this encounter Visit Diagnoses Diagnosis Gestational hypertension without significant proteinuria in third trimester- Primary Transient hypertension of , antepartum Encounter for supervision of other normal , unspecified trimester documented in this encounter Care Teams Financial Systems Analyst Relationship Specialty Start Date End Date Payal Qureshi PA-C [address] [place], [place] [address] [phone] PCP - General Physician Clothing Manager 02/25/21 documented as of this encounter
--- OUTSIDE RECORDS SUMMARY | 2024-11-27 02:54 | External Medical Summary ---
Author Name Unknown Address Unknown Organization [id number]:[facility] [place] - [address] [place] [address] Laboratory Report Ordering Provider Test Date Status TONYA HAMILTON 11/06/2024 13:24:23 Final Observation Date Value Abnormality Reference (Units ) Status TSH 11/06/2024 13:24:23 1.67 0.27-4.20 (uIU/mL) Final Performing Location [facility] - [address] [place] [address]
--- OUTSIDE RECORDS SUMMARY | 2024-11-27 02:54 | External Medical Summary ---
Author Name Unknown Address Unknown Organization [id number][facility] [facility] [address] [facility] [address] [facility] [address] Laboratory Report Ordering Provider Test Date Status TONYA HAMILTON 09/25/2024 15:10:36 Final Observation Date Value Abnormality Reference (Units ) Status Retic, % (auto) 09/25/2024 15:10:36 2.28 Above high normal 0.80-1.90 (%) Final Reticulocytes, Absolute 09/25/2024 15:10:36 89.8 31.3-100.1 (K/uL) Final Reticulocyte fraction, immature 09/25/2024 15:10:36 23.7 Above high normal 2.5-20.6 (%) Final Reticulocyte HGB 09/25/2024 15:10:36 30.9 29.7-37.4 (pg) Final Performing Location [facility] [address] [facility] [address]
--- OUTSIDE RECORDS SUMMARY | 2024-11-27 02:55 | External Medical Summary | Summary of Care ---
Author Name Unknown Organization [facility] Address [address] [facility] [place] [address] Phone [phone] Care Team Providers Care Cash Accountant Name Role Phone Payal Qureshi PA-C Primary Care Provider Reason for Visit * Reason Comments New Visit Encounter Details Date Type Department Care Team (Late st Contact Info) Description 06/21/2024 11:30 AM EDT Office Visit Gynecology/Obstetric [facility] [address] [facility] [place] [address] Odette Marinelli PA-C [address] [facility] [place] [address] Encounter for supervision of other normal in second trimester*; History of gestational hypertension Allergies No known active allergiesdocumented as of this encounter (statuses as of 06/21/2024) Medications Medication Sig Dispensed Refills Start Date End Date Status 27-0.8 MG Oral Tablet Take by mouth. Active documented as of this encounter (statuses as of 06/21/2024) Active Problems Estimated Date of Delivery Comme nts Yes 12/17/2024 Based on last me nstrual period of 03/12/2024 No known active problems documented as of this encounter (statuses as of 06/21/2024) Resolved Problems Problem Noted Date Diagnosed Date Resolved Date Gestational hypertension wit hout significant proteinuria in third trimester 04/14/2022 Supervision of high-risk pre gnancy, unspecified trimester 09/30/2021 06/07/2022 Overview: Labs through [facility]: A+, rubella immune, HIV neg, RPR non-reactive documented as of this encounter (statuses as of 06/21/2024) Immunizations Name Administration Dates Next Due COVID-19 [...] TDAP, Age 7 and older, IM (Adacel) 04/01/2019, Varicella Vaccine (Chicken Pox) 07/14/2010,12/27 documented as of this encounter Social History Tobacco Use Types Packs/Day Years Used Date Smoking Tobacco: Never Smokeless Tobacco: Never Alcohol Use Standard Drinks/Week Comments Not Currently 0 (1 standard drink = 0.6 oz pur e alcohol) occ [place] Depression Scale Answer Date Recorded [place] Depression Scale Total 7 06/07/2022 The thought of harming myself has occurred to me . Never 06/07/2022 Utilities Answer Date Recorded Do you have trouble paying y our heating, water, or electric bill? (Adult - for ages 18 years and over) Not on file 04/16/2024 Is your family able to pay t he heat, water, or electric bill? (Household - for ages 0-17 years) Not on file 04/16/2024 Does your family have access to good internet? (Household - for ages 0-17 years) Not on file 04/16/2024 Social Connections Answer Date Recorded How often do you feel lonely or isolated from those around you? (Adult - for ages 18 years and over) Not on file 04/16/2024 Estimated Date of Delivery Comme nts Yes 12/17/2024 Based on last me nstrual period of 03/12/2024 Sex and Gender Information Value Date Recorded Sex Assigned at Female 06/21/2024 11:35 AM EDT Gender Identity Female 06/21/2024 11:35 AM EDT Sexual Orientation Straight 06/21/2024 11 :35 AM EDT Job Start Date Occupation Industry Not on file Not on file Not on file documented as of this encounter Last Filed Vital Signs Vital Sign Reading Time Taken Comments Blood Pressure 98/58 06/21/2024 11:26 AM EDT Pulse - - Temperature - - Respiratory Rate - - Oxygen Saturation - - Inhaled Oxygen Concentration - - Weight 58 kg (127 lb 12.8 oz) 06/21/2024 11:26 A M EDT Height - - Body Mass Index 24.35 06/07/2022 12:57 PM EDT documented in this encounter Progress Notes * Cleopatra Chawla MED ASSIST - 06/21/2024 11:26 AM EDT 14w3d + nausea + headaches, usually at night. Occasionally takes tylenol ? Baby aspirin * Odette Marinelli PA-C - 06/21/2024 11:22 AM EDT Radha Corodva 06/21/2024 CC: NOB HPI: Radha Cordova is a 23 year old female here for initial OB exam. She is a transfer of care from [facility] and has had NOB labs and Pap completed prior to her appointment today. Reviewed andWNL. DONNY 12/17/2024 by LMP. LMP was 03/12/2024. Prior to , menses were normal, occuring q 28-30 days. Last menses was normal. She was not on anything on control prior. She is taking Prenatalvitamins. She plans to breastfeed infant. Reviewed medications, PMH, social hx, family hx, surgical hx, ob hx, and genetics with patient. Discussed Qnatal and Quad screen. Patient declines genetic testing. Denies family history of genetic conditions in patient's and FOB's families. She reports a history of Gestational HTN with previous diagnosed around 34 weeks. She hasnot had baseline PEC labs drawn. She is not taking 81 mg Aspirin. Last Pap smear 05/10/2024 at [facility]. NILM. [place] Depression Scale [place] Depression Scale Total: 5 [place] suicide question and score: Score of 3 = Yes, quite often. Score of 2 = Sometimes. Score of 1 = Hardly ever The thought of harming myself has occurred to me.: 0 Patient reports moods have been stable. This was a planned and her and FOB are excited. Denies SI/HI. OB History Para Term AB Living 2 1 1 1 SAB IAB Ectopic Multiple Live Births 1 # Outcome Date GA Lbr Sammy/2nd Weight Sex Type Anes PTL Lv 2 Current 1 Term 04/20/22 37w0d 2.761 kg (6 lb 1.4 oz) M Vag-Spont N JULIO Complications: Gestational hypertension Past Medical History: Diagnosis Date Gestational hypertension without significant proteinuria in third trimester 04/14/2022 Social History Socioeconomic History Marital status: Spouse name: Yogi Occupational History Employer: [employer] 276 Tobacco Use Smoking status: Never Smokeless tobacco: Never Vaping Use Vaping status: Never Used Substance and Sexual Activity Alcohol use: Not Currently Comment: occ Drug use: Never Sexual activity: Yes Partners: Male Social Determinants of Health Social Connections No past surgical history on file. Current Outpatient Medications Medication Sig Dispense Refill 27-0.8 MG Oral Tablet Take by mouth. No current facility-administered medications for this visit. Review of patient's allergies indicates: No Known Allergies No family history on file. ROS See HPI for pertinent positives/negatives PHYSICAL EXAM BP 98/58 | Wt 58 kg (127 lb 12.8 oz) | LMP 03/12/2024 | BMI 24.35 kg/m | BSA 1.58 m Declines breast and pelvic exams as these were completed at [facility]. FHT +150s ASSESSMENT/PLAN Encounter for supervision of other normal in second trimester (Primary) - URINALYSIS, POINT OF CARE (ENTER/EDIT) History of gestational hypertension - COMPREHENSIVE METABOLIC PANEL - PROTEIN/ CREATININE RATIO, URINE - URINE PROTEIN, 24 HOUR Agreeable to start 81 mg Aspirin therapy daily. Supervision of - Discussed timing of routine OB care - Offered genetic screening and explained that screening does not provide a definitive diagnosis. Patient declines - Offered CF carrier screening. Patient declines - Recommended clean healthy diet and discussed foods/drinks to avoid in . - Counseled on OTC measures to help alleviate nausea and advised to call if these are ineffective - Recommended daily vitamin. Patient declines prescription. - Discussed labs as ordered and instructed patient to present to lab following appointment. - MFM referral is indicated at this time due to history of Gestational HTN. Discussed with patient and declines at this time. RTO in 4 weeks for MIGUEL VENEGAS with concern Odette Marinelli PA-C 06/21/2024 documented in this encounter Plan of Treatment Scheduled Orders Name Type Priority Associated Diagnoses Orde r Schedule URINALYSIS, POINT OF CARE (ENTER/EDIT) Point of Care Testing Routine Encounter for supervision of other normal in second trimester Ordered: 06/21/2024 COMPREHENSIVE METABOLIC PANEL Lab Routine History of gestational hypertension Ordered: 06/21/2024 PROTEIN/ CREATININE RATIO, URINE Lab Routine History of gestational hypertension Ordered: 06/21/2024 URINE PROTEIN, 24 HOUR Lab Routine History of gestational hypertension Ordered: 06/21/2024 Health Maintenance Due Date Last Done Comments Depression Screening 2010 HPV (Gardasil) Vaccine (1 - 3-dose series) 2013 Hepatitis C Screening 2016 COVID-19 Vaccine (3 - season) 2023 07/22/2022, 07/01/2022 Pap Smear 08/21/2023 08/21/2020 Influenza Vaccine (FLU shot) (#1) 2024 08/21/2018, 2004 DTaP,Tdap,and Td Vaccines (9 - Td or Tdap) 02/25/2032 02/24/2022, 04/01/2019, 07/14/2010, Additional history exists MENINGOCOCCAL (MENACTRA/MENVEO) Completed 06/13/2016, 07/14/2010 Hepatitis B Vaccine Completed 01/25/2019, 09/24/2018, 07/20/2018, Additional history exists Gonorrhea / Chlamydia Screen Discontinued 09/30/2021, 03/11/2019 Pneumococcal Vaccine: Pediatrics (0 to 5 Years) and At-Risk Patients (6 to 64 Years) Aged Out No longer eligible based on patient's age to complete this topic documented as of this encounter Medical Devices Not on filedocumented as of this encounter Visit Diagnoses Diagnosis Encounter for supervision of other normal in second trimester- Primary History of gestational hypertension documented in this encounter Care Teams Cash Accountant Relationship Specialty Start Date End Date Payal Qureshi PA-C [address] [place], [place] [address] [phone] PCP - General Physician Route Returner 02/25/21 documented as of this encounter"
--- OUTSIDE RECORDS SUMMARY | 2024-11-27 02:55 | External Medical Summary ---
Author Name Unknown Address Unknown Organization K01:[facility] [place] [address] [place] [address] Laboratory Report Ordering Provider Test Date Status TOSHA NELSON 06/21/2024 15:25:03 Final Normal: <150 mg/ g creatinine
High: 150-500 mg/g creatinine
Very High: >500 mg/g creatinine
Nephrotic: >3000 mg/g creatinine Observation Date Value Abnormality Reference (Units ) Status Protein/Creatinine [Ratio] in Urine 06/21/2024 15:25:03 125 <150 (mg/g ) Final Protein, Urine 06/21/2024 15:25:03 4 (mg/dL) Final Creatinine, Urine 06/21/2024 15:25:03 32 (mg/dL) Final Performing Location [facility] [place] [address] [place] [address]
--- OUTSIDE RECORDS SUMMARY | 2024-11-27 02:55 | External Medical Summary | Summary of Care ---
Author Name Unknown Organization [facility] Address [address] [facility] [address] Phone [phone] Care Team Providers Care Inspector Poising Name Role Phone Payal Qureshi PA-C Primary Care Provider Encounter Details Date Type Department Care Team (Late st Contact Info) Description 06/24/2024 Orders Only Radiology [facility] 2nd [facility] [place] 132 [facility] [place] [address] Odette Marinelli PA-C [address] [facility] [place] [address] Encounter for supervision of other normal , second trimester* Allergies No known active allergiesdocumented as of this encounter (statuses as of 06/24/2024) Medications Medication Sig Dispensed Refills Start Date End Date Status 27-0.8 MG Oral Tablet Take by mouth. Active documented as of this encounter (statuses as of 06/24/2024) Active Problems Estimated Date of Delivery Comme nts Yes 12/17/2024 Based on last me nstrual period of 03/12/2024 No known active problems documented as of this encounter (statuses as of 06/24/2024) Resolved Problems Problem Noted Date Diagnosed Date Resolved Date Gestational hypertension wit hout significant proteinuria in third trimester 04/14/2022 Supervision of high-risk pre gnancy, unspecified trimester 09/30/2021 06/07/2022 Overview: Labs through [facility]: A+, rubella immune, HIV neg, RPR non-reactive documented as of this encounter (statuses as of 06/24/2024) Immunizations Name Administration Dates Next Due COVID-19 [...] = 0.6 oz pur e alcohol) occ [place] Depression Scale Answer Date Recorded [place] Depression Scale Total 5 06/21/2024 The thought of harming myself has occurred to me . Never 06/21/2024 Utilities Answer Date Recorded Do you have [...] as of this encounter Plan of Treatment Scheduled Orders Name Type Priority Associated Diagnoses Orde r Schedule US PREG SINGLE/1ST GEST, 14 WEEKS OR LATER Medical Imaging Routine Encounter for supervision of other normal , second trimester Expected: 07/30/2024 (Approximate), Expires: 07/25/2025 Health Maintenance Due Date Last Done Comments [...] Encounter for supervision of other normal , second trimester- Primary documented in this encounter Care Teams Inspector Poising Relationship Specialty Start Date End Date Payal Qureshi PA-C [address] [place] [address] [phone] PCP - General Physician Laminate Floor Installer 02/25/21 documented as of this encounter
--- OUTSIDE RECORDS SUMMARY | 2024-11-27 02:55 | External Medical Summary | Summary of Care ---
Author Name Unknown Organization [facility] Address [address] [facility] [place] [address] Phone [phone] Care Team Providers Care Creative Services Intern Name Role Phone Payal Qureshi PA-C Primary Care Provider Encounter Details Date Type Department Care Team (Late st Contact Info) Description 06/24/2024 Telephone Gynecology/Obstetrics [facility] 132 [facility] [place] [address] Odette Marinelli PA-C 400 [facility] [place] [address] Allergies No known active allergiesdocumented as of [...] unspecified trimester 09/30/2021 06/07/2022 Overview: Labs through [facility]: A+, rubella immune, HIV neg, RPR non-reactive [...] = 0.6 oz pur e alcohol) occ [place] Depression Scale Answer Date Recorded [place] Depression Scale Total 5 06/21/2024 The thought [...] encounter Miscellaneous Notes * Telephone Encounter - Marsha Fermin RN - 06/24/2024 9:34 AM EDT Patient Called back and was made aware. * Telephone Encounter - Marsha Fermin RN - 06/24/2024 9:14 AM EDT Attempted to call patient. No answer, LVM to return call. * Telephone Encounter - Barbara Calix LPN - 06/24/2024 8:33 AM EDT ----- Message from Odette Marinelli sent at 06/24/2024 8:01 AM EDT ----- Please inform patient I have reviewed the finalized report of her recent U/S. Heart rate was 160 bpm. DONNY 12/13/2024, however, we will continue to use her LMP due date of 12/17/2024. She will need scheduled for her anatomy scan in ~5 weeks. I have placed the order. Please assist with scheduling. Thanks! Odette Marinelli PA-C documented in this [...] filedocumented as of this encounter Care Teams Creative Services Intern Relationship Specialty Start Date End Date Payal Qureshi PA-C [address] [place], [place] [address] [phone] PCP - General Physician Secretary Receptionist 02/25/21 documented as of this encounter
--- OUTSIDE RECORDS SUMMARY | 2024-11-27 02:55 | External Medical Summary ---
Author Name Unknown Address Unknown Organization K01:LABORATORY [facility] [place] - [address] [place] [address] Laboratory Report Ordering Provider Test Date Status TONYA HAMILTON 09/25/2024 15:10:36 Final Observation Date Value Abnormality Reference (Units ) Status Creatinine 09/25/2024 15:10:36 0.5 0.5-1.0 (mg/dL) Final Glomerular filtration rate/1.73 sq M.predicted [Volume Rate/Area] in Serum, Plasma or Blood by Creatinine-based formula (CKD-EPI) 09/25/2024 15:10:36 >90 >=60 (mL/min) Final eGFR is calculated based on the CKD-EPI 2020 equation. Performing Location LABORATORY [facility] [place] - [address] [place] [address]
--- OUTSIDE RECORDS SUMMARY | 2024-11-27 02:55 | External Medical Summary | Summary of Care ---
Author Name Unknown Organization [facility] Address [address] [facility] [place] [address] Phone [phone] Care Team Providers Care Client Success Director Name Role Phone Payal Qureshi PA-C Primary Care Provider Encounter Details Date Type Department Care Team (Late st Contact Info) Description 08/16/2024 Telephone Gynecology/Obstetrics [facility] 132 [facility] [place] [address] Odette Marinelli PA-C 400 [facility] [place] [address] Allergies No known active allergiesdocumented as of this encounter (statuses as of 08/17/2024) Medications Medication Sig Dispensed Refills Start Date End Date Status 27-0.8 MG Oral Tablet Take by mouth. Active documented as of this encounter (statuses as of 08/17/2024) Active Problems Problem Noted Date Diagnosed Date Encounter for supervision of other normal , unspecified trimester 08/02/2024 Gestational hypertension wit hout significant proteinuria in third trimester 04/14/2022 Overview: GHTN with first Estimated Date of Delivery Comme nts Yes 12/17/2024 Based on last me nstrual period of 03/12/2024 documented as of this encounter (statuses as of 08/17/2024) Resolved Problems Problem Noted Date Diagnosed Date Resolved Date Supervision of high-risk pre gnancy, unspecified trimester 09/30/2021 06/07/2022 Overview: Labs through [place]: A+, rubella immune, HIV neg, RPR non-reactive documented as of this encounter (statuses as of 08/17/2024) Immunizations Name Administration Dates Next Due COVID-19 [...] = 0.6 oz pur e alcohol) occ [place] Depression Scale Answer Date Recorded [place] Depression Scale Total 5 06/21/2024 The thought [...] Telephone Encounter - Barbara Calix LPN - 08/16/2024 1:07 PM EDT ----- Message from Odette Marinelli sent at 08/16/2024 1:07 PM EDT ----- Please inform patient I have reviewed the results of her recent repeat Anatomy scan. They were ableto adequately evaluate baby's orbits and facial profile. Heart rate was 161. Fluid levels normal. Baby is head down. Thanks! Odette Marinelli PA-C documented in this encounter Plan of Treatment Upcoming Encounters Date Type Department Care Team (Late st Contact Info) Description 08/30/2024 11:45 AM EDT Office Visit Gynecology/Obstetrics Kelli Martinez [address] [place] [address] Nina Garcia PA-C [address] [place] [address] Health Maintenance Due Date Last Done Comments Depression Screening 2010 HPV (Gardasil) Vaccine (1 - 3-dose series) 2013 Hepatitis C Screening 2016 GFR 04/13/2023 04/13/2022 COVID-19 Vaccine (3 - season) 2024 07/22/2022, 07/01/2022 Influenza Vaccine (FLU shot) (#1) 2024 08/21/2018, 2004 Pap Smear 05/10/2027 05/10/2024, 08/21/2020 DTap/Tdap Vaccines (9 - Td or Tdap) 02/25/2032 [...] filedocumented as of this encounter Care Teams Client Success Director Relationship Specialty Start Date End Date Payal Qureshi PA-C [address] [place] [address] [place] [phone] PCP - General Physician Power Lineman 02/25/21 documented as of this encounter
--- OUTSIDE RECORDS SUMMARY | 2024-11-27 02:55 | External Medical Summary | Summary of Care ---
Author Name Unknown Organization [facility] Address [address] [facility] [address] Phone [phone] Care Team Providers Care Obgyn Hospitalist Physician Name Role Phone Payal Qureshi PA-C Primary Care Provider Encounter Details Date Type Department Care Team (Late st Contact Info) Description 05/10/2024 Result Scan Unspecified Department <No scans attached> Allergies No known active allergiesdocumented as of this encounter (statuses as of 07/02/2024) Medications Medication Sig Dispensed Refills Start Date End Date Status 27-0.8 MG Oral Tablet Take by mouth. Active documented as of this encounter (statuses as of 07/02/2024) Active Problems No known active problems documented as of this encounter (statuses as of 07/02/2024) Resolved Problems Problem Noted Date Diagnosed Date Resolved Date Gestational hypertension wit hout significant proteinuria in third trimester 04/14/2022 Supervision of high-risk pre gnancy, unspecified trimester 09/30/2021 06/07/2022 Overview: Labs through [facility]: A+, rubella immune, HIV neg, RPR non-reactive documented as of this encounter (statuses as of 07/02/2024) Immunizations Name Administration Dates Next Due COVID-19 [...] = 0.6 oz pur e alcohol) occ [place] Depression Scale Answer Date Recorded [place] Depression Scale Total 5 06/21/2024 The thought [...] years and over) Not on file 04/16/2024 Sex and Gender Information Value Date Recorded [...] Care Team (Late st Contact Info) Description 08/02/2024 2:45 PM EDT Imaging Radiology [facility] [address] [place] [address] Health Maintenance Due Date Last Done Comments [...] Procedure Name Priority Date/Time Associated Diagnosis Comments OUTSIDE LAB RESULTS 05/10/2024 documented in this encounter Results * OUTSIDE LAB RESULTS (05/10/2024) 05/10/2024 No Physician Data Unknown LABORATORY documented in this encounter Care Teams Obgyn Hospitalist Physician Relationship Specialty Start Date End Date Payal Qureshi PA-C [address] [place] [phone] PCP - General Physician Truck Jumper 02/25/21 documented as of this encounter
--- OUTSIDE RECORDS SUMMARY | 2024-11-27 02:55 | External Medical Summary | Summary of Care ---
Author Name Unknown Organization [facility] Address [address] [facility] [place] [address] Phone [phone] Care Team Providers Care Process Pumper Name Role Phone Payal Qureshi PA-C Primary Care Provider Reason for Visit * Reason Comments New Visit Encounter Details Date Type Department Care Team (Late st Contact Info) Description 06/06/2024 8:30 AM EDT Nurse Only Gynecology/Obstetrics [facility] 132 [facility] [place] [address] Gw, Nurse Cashier Assistant [facility] 132 [facility] [place] [address] New Visit Allergies No known active allergiesdocumented as of this encounter (statuses as of 06/06/2024) Medications Medication Sig Dispensed Refills Start Date End Date Status 27-0.8 MG Oral Tablet Take by mouth. Active documented as of this encounter (statuses as of 06/06/2024) Active Problems Estimated Date of Delivery Comme nts Yes 12/17/2024 Based on last me nstrual period of 03/12/2024 No known active problems documented as of this encounter (statuses as of 06/06/2024) Resolved Problems Problem Noted Date Diagnosed Date Resolved Date Gestational hypertension wit hout significant proteinuria in third trimester 04/14/2022 Supervision of high-risk pre gnancy, unspecified trimester 09/30/2021 06/07/2022 Overview: Labs through [place]: A+, rubella immune, HIV neg, RPR non-reactive documented as of this encounter (statuses as of 06/06/2024) Immunizations Name Administration Dates Next Due COVID-19 [...] = 0.6 oz pur e alcohol) occ [place] Depression Scale Answer Date Recorded [place] Depression Scale Total 7 06/07/2022 The thought [...] Information Value Date Recorded Sex Assigned at Not on file Gender Identity Not on file Sexual Orientation Not on file Job Start Date Occupation Industry Not on file Not on file Not on file documented as of this encounter Nursing Notes * Marsha Fermin RN - 06/06/2024 8:33 AM EDT Patient called for NOB intake LMP 03/12/24 Had NOB and dating US at [facility] on 05/10 Denies pain or bleeding Denies N/V/ESTRADA Intake completed Education given Triage number given Has history of GHTN - Asking if she should start baby aspirin at this time or wait until next visit. Advised I would review with provider and let her know. Advised that she should bring all NOB records from [facility] with her including US report. Patient advised we do not need to repeat dating US, asking to keep scheduled. Advised that this may not be covered by insurance, wishes to keep scheduled. Marsha Fermin RN documented in this encounter Plan of Treatment Upcoming Encounters Date Type Department Care Team (Late st Contact Info) Description 06/21/2024 10:30 AM EDT Imaging Radiology [facility] [address] [place] [address] 06/21/2024 11:30 AM EDT Office Visit Gynecology/Obstetrics [facility] [place] [address] dOette Marinelli PA-C [address] [place] [address] Health Maintenance Due Date Last Done Comments Depression Screening 2010 HPV (Gardasil) Vaccine (1 - 3-dose series) 2013 Hepatitis C Screening 2016 COVID-19 Vaccine (3 - 2022- season) 2023 07/22/2022, 07/01/2022 Pap Smear 08/21/2023 [...] filedocumented as of this encounter Care Teams Process Pumper Relationship Specialty Start Date End Date Payal Qureshi PA-C [address] [place], [place] [address] [phone] PCP - General Physician Hardware Installer 02/25/21 documented as of this encounter
--- OUTSIDE RECORDS SUMMARY | 2024-11-27 02:55 | External Medical Summary | Summary of Care ---
Author Name Unknown Organization [facility] Address [address] [facility] [place] [address] Phone [phone] Care Team Providers Care Rug Setter Velvet Name Role Phone Payal Qureshi PA-C Primary Care Provider Encounter Details Date Type Department Care Team (Late st Contact Info) Description 06/24/2024 Telephone Gynecology/Obstetrics [facility] 132 [facility] [place] [address] Odette Marinelli PA-C 400 [facility] [place] [address] Allergies No known [...] unspecified trimester 09/30/2021 06/07/2022 Overview: Labs through [place]: A+, rubella immune, HIV neg, RPR non-reactive [...] = 0.6 oz pur e alcohol) occ [place] Depression Scale Answer Date Recorded [place] Depression Scale Total 5 06/21/2024 The thought [...] filedocumented as of this encounter Care Teams Rug Setter Velvet Relationship Specialty Start Date End Date Payal Qureshi PA-C [address] [place] [phone] PCP - General Physician Adjunct Latin Professor 02/25/21 documented as of this encounter
--- OUTSIDE RECORDS SUMMARY | 2024-11-27 02:55 | External Medical Summary | Summary of Care ---
Author Name Unknown Organization [facility] Address [address] [facility] [address] Phone [phone] Care Team Providers Care Viner Operator Name Role Phone Payal Qureshi PA-C Primary Care Provider Reason for Visit * Reason Comments New Visit Encounter Details Date Type Department Care Team (Late st Contact Info) Description 06/21/2024 11:30 AM EDT Office Visit Gynecology/Obstetric [facility] 132 [facility] [place] [address] Odette Marinelli PA-C 400 [facility] [place] [address] Encounter for supervision [...] unspecified trimester 09/30/2021 06/07/2022 Overview: Labs through [place]: A+, rubella immune, HIV neg, RPR [...] = 0.6 oz pur e alcohol) occ [place] Depression Scale Answer Date Recorded [place] Depression Scale Total 5 06/21/2024 The thought [...] PA-C - 06/21/2024 11:22 AM EDT Radha Cordova 06/21/2024 CC: NOB HPI: Radha Cordova is a 23 year old female here for initial OB exam. She is a transfer of care from [facility] and has had NOB labs and Pap [...] mg Aspirin. Last Pap smear 05/10/2024 at [facility]. NILM. [place] Depression Scale [place] Depression Scale Total: 5 [place] suicide question and score: Score of 3 [...] status: Spouse name: Yogi Occupational History Employer: [employer] 820 Tobacco Use Smoking status: Never Smokeless tobacco: [...] pelvic exams as these were completed at [facility]. FHT +150s ASSESSMENT/PLAN Encounter for supervision of [...] documented in this encounter Plan of Treatment Pending Results Name Type Priority Associated Diagnoses Date /Time PROTEIN/ CREATININE RATIO, URINE Lab Routine History of gestational hypertension 06/21/2024 3:25 PM EDT Scheduled Orders Name Type Priority Associated Diagnoses [...] C Screening 2016 COVID-19 Vaccine (3 season) 2023 07/22/2022, 07/01/2022 Pap Smear 08/21/2023 [...] hypertension documented in this encounter Care Teams Viner Operator Relationship Specialty Start Date End Date Payal Qureshi PA-C [address] [place], [place] [address] [id number] PCP - General Physician [place] Operator 02/25/21 documented as of this encounter"
--- OUTSIDE RECORDS SUMMARY | 2024-11-27 02:55 | External Medical Summary | Summary of Care ---
Author Name Unknown Organization [facility] Address [address] [facility] [place] [address] Phone [phone] Care Team Providers Care Machine Records Units Supervisor Name Role Phone Payal Qureshi PA-C Primary Care Provider Encounter Details Date Type Department Care Team (Late st Contact Info) Description 08/02/2024 Orders Only Radiology [facility] 2nd [facility] 132 [facility] [place] [address] Odette Marinelli PA-C 400 [facility] [place] [address] Encounter for supervision of other normal , second trimester* Allergies No known active allergiesdocumented as of this encounter (statuses as of 08/02/2024) Medications Medication Sig Dispensed Refills Start Date End Date Status 27-0.8 MG Oral Tablet Take by mouth. Active documented as of this encounter (statuses as of 08/02/2024) Active Problems Problem Noted Date Diagnosed Date Encounter for supervision of other normal , unspecified trimester 08/02/2024 Gestational hypertension wit hout significant proteinuria in third trimester 04/14/2022 Overview: GHTN with first Estimated Date of Delivery Comme nts Yes 12/17/2024 Based on last me nstrual period of 03/12/2024 documented as of this encounter (statuses as of 08/02/2024) Resolved Problems Problem Noted Date Diagnosed Date Resolved Date Supervision of high-risk pre gnancy, unspecified trimester 09/30/2021 06/07/2022 Overview: Labs through [place]: A+, rubella immune, HIV neg, RPR non-reactive documented as of this encounter (statuses as of 08/02/2024) Immunizations Name Administration Dates Next Due COVID-19 [...] = 0.6 oz pur e alcohol) occ [place] Depression Scale Answer Date Recorded [place] Depression Scale Total 5 06/21/2024 The thought [...] Gynecology/Obstetrics Kelli Martinez [address] [place] [address] Nina Garcia PA-C [address] [place] [address] Scheduled Orders Name Type Priority Associated Diagnoses Orde r Schedule US PREG FOLLOW-UP EACH FETUS Medical Imaging Routine Encounter for supervision of other normal , second trimester Expected: 08/16/2024 (Approximate), Expires: 09/02/2025 Health Maintenance Due Date Last Done Comments [...] Primary documented in this encounter Care Teams Machine Records Units Supervisor Relationship Specialty Start Date End Date Payal Qureshi PA-C [address] [place], [place] [address] [phone] PCP - General Physician Diesel Mechanic Apprentice 02/25/21 documented as of this encounter
--- OUTSIDE RECORDS SUMMARY | 2024-11-27 02:55 | External Medical Summary | Summary of Care ---
Author Name Unknown Organization [facility] Address [address] [facility] [place] [address] Phone [phone] Care Team Providers Care Station Baggage Agent Name Role Phone Payal Qureshi PA-C Primary Care Provider Encounter Details Date Type Department Care Team (Late st Contact Info) Description 08/02/2024 Telephone Gynecology/Obstetrics [facility] 132 [facility] [place] [address] Odette Marinelli PA-C 400 [facility] [place] [address] Allergies No known active allergiesdocumented as of this encounter (statuses as of 08/08/2024) Medications Medication Sig Dispensed Refills Start Date End Date Status 27-0.8 MG Oral Tablet Take by mouth. Active documented as of this encounter (statuses as of 08/08/2024) Active Problems Problem Noted Date Diagnosed Date Encounter for supervision of other normal , unspecified trimester 08/02/2024 Gestational hypertension wit hout significant proteinuria in third trimester 04/14/2022 Overview: GHTN with first Estimated Date of Delivery Comme nts Yes 12/17/2024 Based on last me nstrual period of 03/12/2024 documented as of this encounter (statuses as of 08/08/2024) Resolved Problems Problem Noted Date Diagnosed Date Resolved Date Supervision of high-risk pre gnancy, unspecified trimester 09/30/2021 06/07/2022 Overview: Labs through [place]: A+, rubella immune, HIV neg, RPR non-reactive documented as of this encounter (statuses as of 08/08/2024) Immunizations Name Administration Dates Next Due COVID-19 [...] = 0.6 oz pur e alcohol) occ [place] Depression Scale Answer Date Recorded [place] Depression Scale Total 5 06/21/2024 The thought [...] Telephone Encounter - Barbara Calix LPN - 08/02/2024 4:27 PM EDT ----- Message from Odette Marinelli sent at 08/02/2024 4:10 PM EDT ----- Please inform patient her recent anatomy scan has been reviewed. Baby is head down. Heart rate was 149 bpm. Visualized anatomy, growth, and fluid levels normal. Radiology was unable to obtain an adequate view of baby's orbits, profile, and outflow tracts. Recommending repeat U/S in 2 weeks. Order placed, please assist with scheduling. Thanks! Odette Marinelli PA-C documented in this encounter Plan of Treatment Upcoming Encounters Date Type Department Care Team (Late st Contact Info) Description 08/16/2024 9:45 AM EDT Imaging Radiology [facility] 2nd Floor, [address] [place] [address] 08/30/2024 11:45 AM EDT Office Visit Gynecology/Obstetrics Kelli Martinez [address] [place] [address] Nina Garcia PA-C [address] [place] [address] Health Maintenance Due Date Last Done Comments [...] filedocumented as of this encounter Care Teams Station Baggage Agent Relationship Specialty Start Date End Date Payal Qureshi PA-C [address] [place] [address] [place] [phone] PCP - General Physician Service Delivery Director 02/25/21 documented as of this encounter
--- OUTSIDE RECORDS SUMMARY | 2024-11-27 02:55 | External Medical Summary ---
Author Name Unknown Address Unknown Organization K01:LABORATORY [facility] [place] - [address] [facility] [address] [place] [address] Laboratory Report Ordering Provider Test Date Status TONYA HAMILTON 09/25/2024 15:10:36 Final Observation Date Value Abnormality Reference (Units ) Status Ferritin 09/25/2024 15:10:36 17 13-150 (ng /mL) Final Performing Location LABORATORY [facility] - [address] [facility] [address] [place] [address]
--- OUTSIDE RECORDS SUMMARY | 2024-11-27 02:55 | External Medical Summary | Summary of Care ---
Author Name Unknown Organization [facility] Address [address] [facility] [place] [address] Phone [phone] Care Team Providers Care Correctional Security Officer Name Role Phone Payal Qureshi PA-C Primary Care Provider Reason for Visit * Reason Comments Return Visit Encounter Details Date Type Department Care Team (Late st Contact Info) Description 08/30/2024 11:45 AM EDT Office Visit Gynecology/Obstetric s Kelli Martinez [address] [place] [phone] Nina Garcia PA-C [address] [place] [address] Encounter for supervision of other normal , unspecified trimester*; Gestational hypertension without significant proteinuria in third trimester Allergies No known active allergiesdocumented as of this encounter (statuses as of 08/30/2024) Medications Medication Sig Dispensed Refills Start Date End Date Status 27-0.8 MG Oral Tablet Take by mouth. Active documented as of this encounter (statuses as of 08/30/2024) Active Problems Problem Noted Date Diagnosed Date Encounter for supervision of other normal , unspecified trimester 08/02/2024 Gestational hypertension wit hout significant proteinuria in third trimester 04/14/2022 Overview: GHTN with first Estimated Date of Delivery Comme nts Yes 12/17/2024 Based on last me nstrual period of 03/12/2024 documented as of this encounter (statuses as of 08/30/2024) Resolved Problems Problem Noted Date Diagnosed Date Resolved Date Supervision of high-risk pre gnancy, unspecified trimester 09/30/2021 06/07/2022 Overview: Labs through [facility]: A+, rubella immune, HIV neg, RPR non-reactive documented as of this encounter (statuses as of 08/30/2024) Immunizations Name Administration Dates Next Due COVID-19 [...] = 0.6 oz pur e alcohol) occ [place] Depression Scale Answer Date Recorded [place] Depression Scale Total 5 06/21/2024 The thought [...] Sign Reading Time Taken Comments Blood Pressure 118/84 08/30/2024 11:42 AM EDT Pulse - - Temperature - - Respiratory Rate - - Oxygen Saturation - - Inhaled Oxygen Concentration - - Weight 64.9 kg (143 lb) 08/30/2024 11:42 AM EDT Height 154.3 cm (5' 0.75") 08/30/2024 11:42 AM E DT Body Mass Index 27.24 08/30/2024 11:42 AM EDT documented in this encounter Progress Notes * Nina Garcia PA-C - 08/30/2024 11:58 AM EDT 24w3d No concerns. Denies LOF, VB, contractions. Reviewed [facility], asking in regards to anterior placenta. Advised should get 10 movement in 2 hrs regardless if not call right away. Third tri labs next visit RTC in 4 week Nina Garcia PA-C documented in this encounter Nursing Notes * Kaity Stratton LPN - 08/30/2024 11:45 AM EDT 24w3d Denies concerns documented in this encounter Plan of Treatment Scheduled Orders Name Type Priority Associated Diagnoses Orde r Schedule SYPHILIS ANTIBODY SCREEN WITH REFLEX TO RPR Lab Routine Encounter for supervision of other normal , unspecified trimester Expected: 09/29/2024 (Approximate), Expires: 08/30/2025 CBC WITH WBC DIFFERENTIAL AND ANEMIA REFLEX WORKUP Lab Routine Encounter for supervision of other normal , unspecified trimester Expected: 09/29/2024 (Approximate), Expires: 08/30/2025 50-G GESTATIONAL GLUCOSE, 1 HOUR Lab Routine Encounter for supervision of other normal , unspecified trimester Expected: 09/29/2024 (Approximate), Expires: 08/30/2025 Health Maintenance Due Date Last Done Comments [...] third trimester Transient hypertension of , antepartum documented in this encounter Care Teams Correctional Security Officer Relationship Specialty Start Date End Date Payal Qureshi PA-C [address] [place] [phone] PCP - General Physician Recovery Operator 02/25/21 documented as of this encounter
--- OUTSIDE RECORDS SUMMARY | 2024-11-27 02:55 | External Medical Summary | Summary of Care ---
Author Name Unknown Organization [facility] Address [address] [facility] [place] [address] Phone [phone] Care Team Providers Care Graphics Coordinator Name Role Phone Payal Qureshi PA-C Primary Care Provider Reason for Visit * Reason Comments Return Visit Encounter Details Date Type Department Care Team (Late st Contact Info) Description 08/02/2024 2:30 PM EDT Office Visit Gynecology/Obstetric s Kelli Martinez [address] [place] [address] Griselda aCpps CRNP [address] [place] [phone] Gestational hypertension without significant proteinuria in third trimester*; Encounter for supervision of other normal , second trimester Allergies No known active allergiesdocumented as [...] unspecified trimester 09/30/2021 06/07/2022 Overview: Labs through [facility]: A+, rubella immune, HIV neg, RPR [...] 0.6 oz pur e alcohol) occ [place] Depression Scale Answer Date Recorded [place] Depression Scale Total 5 06/21/2024 The thought [...] Sign Reading Time Taken Comments Blood Pressure 124/72 08/02/2024 2:27 PM EDT Pulse - - Temperature - - Respiratory Rate - - Oxygen Saturation - - Inhaled Oxygen Concentration - - Weight 62.1 kg (137 lb) 08/02/2024 2:27 PM EDT Height 154.3 cm (5' 0.75") 08/02/2024 2:27 PM ED T Body Mass Index 26.1 08/02/2024 2:27 PM EDT documented in this encounter Progress Notes * Griselda Capps CRNP - 08/02/2024 2:40 PM EDT 20w3d Complaints: none Feeling well overall. Has not yet felt any FM. No contractions, bleeding, or LOF. Anatomy u/s after visit today. CHANDLER Weiss documented in this encounter Nursing Notes * Kaity Stratton LPN - 08/02/2024 2:27 PM EDT 20w3d Scheduled for anatomy scan today. documented in this encounter Plan of Treatment [...] supervision of other normal , second trimester documented in this encounter Care Teams Graphics Coordinator Relationship Specialty Start Date End Date Payal Qureshi PA-C [address] [place], [place] [address] [id number] PCP - General Physician Hr Coordinator 02/25/21 documented as of this encounter
--- OUTSIDE RECORDS SUMMARY | 2024-11-27 02:55 | External Medical Summary | Summary of Care ---
Author Name Unknown Organization [facility] Address [address] [place] [address] Phone [phone] Care Team Providers Care Traffic Administrator Name Role Phone Payal Qureshi PA-C Primary Care Provider Encounter Details Date Type Department Care Team (Late st Contact Info) Description 07/02/2024 Orders Only Gynecology/Obstetrics [facility] [address] [place] [address] Odette Marinelli PA-C [address] [place] [address] Allergies No known active allergiesdocumented as of this encounter (statuses as of 07/02/2024) Medications Medication Sig Dispensed Refills Start Date End Date Status 27-0.8 MG Oral Tablet Take by mouth. Active documented as of this encounter (statuses as of 07/02/2024) Active Problems Estimated Date of Delivery Comme nts Yes 12/17/2024 Based on last me nstrual period of 03/12/2024 No known active problems documented as of this encounter (statuses as of 07/02/2024) Resolved Problems Problem Noted Date Diagnosed Date Resolved Date Gestational hypertension wit hout significant proteinuria in third trimester 04/14/2022 Supervision of high-risk pre gnancy, unspecified trimester 09/30/2021 06/07/2022 Overview: Labs through [facility]: A+, rubella immune, HIV neg, RPR non-reactive [...] = 0.6 oz pur e alcohol) occ [place] Depression Scale Answer Date Recorded [place] Depression Scale Total 5 06/21/2024 The thought [...] Description 08/02/2024 2:45 PM EDT Imaging Radiology [facility] [address] [place] [address] Health Maintenance Due Date Last Done Comments [...] Procedure Name Priority Date/Time Associated Diagnosis Comments PAP SMEAR, OUTSIDE PROCEDURE Routine 05/10/2024 documented in this encounter Results * PAP SMEAR, OUTSIDE PROCEDURE (05/10/2024) 05/10/2024 History Per Patient LABORATORY OUTSIDE LAB (SEE SCANNED REPORT) documented in this encounter Care Teams Traffic Administrator Relationship Specialty Start Date End Date Payal Qureshi PA-C [address] [place], [place] [address] [address] PCP - General Physician Valve Pipe Irrigator 02/25/21 documented as of this encounter
[2024-11-27] MEDS: ACETAMINOPHEN 325 MG TAB PO SCH (05:21)
[2024-11-27 06:29] LABS: Basophils # (auto) 0.02 K/uL (0.00-0.20); Basophils % (auto) 0.2 %; Eosinophils # (auto) 0.02 K/uL (0.00-0.50); Eosinophils % (auto) 0.2 %; Hematocrit (blood only) 30.5 % (37.0-47.0); Hemoglobin 10.1 g/dl (12.0-16.0); Immature Granulocytes # (auto) 0.04 K/uL (0.01-0.20); Immature Granulocytes % (auto) 0.4 %; Lymphocytes # (auto) 2.05 K/uL (1.20-3.40); Lymphocytes % (auto) 18.5 %; Mean Corpuscular Hemoglobin 28.9 pg (25.0-34.0); Mean Corpuscular Hgb Conc 33.1 g/dL (32.0-36.0); Mean Corpuscular Volume 87.1 fL (80.0-100.0); Mean Platelet Volume 10.5 fL (9.4-12.4); Monocytes # (auto) 0.68 K/uL (0.11-0.59); Monocytes % (auto) 6.1 %; Neutrophils # (auto) 8.27 K/uL (1.40-6.50); Neutrophils % (auto) 74.6 %; Platelet Count 170 K/uL (130-400); RDW Coefficient of Variation 14.3 % (11.5-14.5); RDW Standard Deviation 44.8 fL (36.4-46.3); White Blood Count 11.08 K/ul (4.8-10.8)
[2024-11-27] MEDS: SIMETHICONE 80 MG CHEW PO SCH (09:29)
[2024-11-27] MEDS: DOCUSATE SODIUM 100 MG CAP PO SCH (09:29)
[2024-11-27] MEDS: PRENATAL VITAMIN 1 TAB PO SCH (09:29)
[2024-11-27] MEDS: FERROUS SULFATE 325 MG TAB PO SCH (09:30)
--- NOTE | 2024-11-27 09:46 | Obstetrical Progress Note ---
Date of Service November 27, 2024 Assessment & Plan Admission and Anticipated Discharge Date Admission Date: November 26, 2024 Subjective Patient is seen and examined. She feels well, no complaints. Pain is under control with oral meds. Ambulating without dizziness Has not Voided yet Tolerating regular diet with out N&V Flatus + BM neg Bleeding is minimal No fever/ chills/ CP/ SOB/ N&V/ Leg pain Breast feeding without problems Vital Signs Height Weight Body Mass Index Blood Pressure Blood Pressure Position Temperature Temperature Source 5 ft 74.389 kg 32.0 114/73 Semi-fowlers 36.6 C Oral 11/26/24 21:55 11/26/24 21:55 11/26/24 17:59 11/27/24 05:00 11/27/24 05:00 11/27/24 05:00 11/27/24 05:00 Pulse Rate Respiratory Rate Pulse Oximetry 91 H 18 96 11/27/24 05:00 11/27/24 05:57 11/27/24 05:57 Intake & Output 11/26/24 11/27/24 11/27/24 22:59 06:59 14:59 Intake Total 250 / 250 Output Total 839 / 839 Balance -589 / -589 Weight 74.389 kg Intake: IV Perioperative 250 / 250 Output: Output, Cumulative Blood Loss ( 514 / 514 QBL) Amount Delivery 456 / 456 Recovery 58 / 58 Urine Amount (Catheter) 325 / 325 Silveira/Indwelling 325 / 325 Other: Weight Measurement Method Last Office Visit PE: General: Alert, orientedx3, NAD CVS: S1S2 RRR Lungs; CTAB Abd: soft, NT, ND, BS+, fundus firm, below Umbilicus Incision/ Dressing: Clean, dry, intact Perineum intact, Lochia rubra minimal Ext; NT, no edema, SCD's on AP: 23 yo s/p C Section, pod# 1 VSS Afebrile doing well Continue routine postop care Encourage ambulation, PO intake All questions were answered Results & Data Vital Signs (Past 12 Hours) Vital Signs Temp Pulse Pulse Resp BP BP Pulse Ox 11/27/24 05:57 18 96 11/27/24 05:00 36.6 C 91 H 18 114/73 98 11/27/24 04:56 16 96 11/27/24 04:00 18 96 11/27/24 03:00 18 96 11/27/24 01:56 18 97 11/27/24 01:45 36.5 C 104 H 18 121/76 97 11/27/24 01:45 11/27/24 01:14 117 H 98 11/27/24 01:10 36.8 C 16 11/27/24 01:10 111 H 125/65 11/27/24 01:09 109 H 97 11/27/24 01:04 105 H 97 11/27/24 00:59 106 H 96 11/27/24 00:54 95 H 96 11/27/24 00:49 110 H 97 11/27/24 00:44 109 H 97 11/27/24 00:40 104 H 124/83 11/27/24 00:39 114 H 96 11/27/24 00:34 116 H 96 11/27/24 00:30 16 11/27/24 00:29 102 H 97 11/27/24 00:24 96 H 98 11/27/24 00:19 104 H 97 11/27/24 00:14 97 H 96 11/27/24 00:10 16 11/27/24 00:10 16 11/27/24 00:10 93 H 117/63 11/27/24 00:09 90 97 11/27/24 00:04 94 H 97 11/27/24 00:00 16 11/27/24 00:00 90 122/76 11/26/24 23:59 97 11/26/24 23:59 87 11/26/24 23:54 97 11/26/24 23:54 103 H 11/26/24 23:51 16 11/26/24 23:50 96 H 11/26/24 23:50 127/63 11/26/24 23:49 95 11/26/24 23:49 99 H 11/26/24 23:44 98 11/26/24 23:44 98 H 11/26/24 23:40 16 11/26/24 23:39 99 11/26/24 23:39 90 11/26/24 23:39 117/66 11/26/24 23:34 98 11/26/24 23:34 93 H 11/26/24 23:30 16 11/26/24 23:30 98 H 11/26/24 23:30 121/64 11/26/24 23:29 99 11/26/24 23:29 93 H 11/26/24 23:24 98 11/26/24 23:24 101 H 11/26/24 23:20 16 11/26/24 23:19 97 11/26/24 23:19 118 H 11/26/24 23:19 112/59 L 11/26/24 23:14 96 11/26/24 23:14 93 H 11/26/24 23:14 112/60 11/26/24 23:10 36.6 C 16 11/26/24 23:09 96 11/26/24 23:09 94 H 11/26/24 23:09 114/62 O2 Del Method 11/27/24 05:57 11/27/24 05:00 Room Air 11/27/24 04:56 11/27/24 04:00 11/27/24 03:00 11/27/24 01:56 11/27/24 01:45 Room Air 11/27/24 01:45 Room Air 11/27/24 01:14 11/27/24 01:10 11/27/24 01:10 11/27/24 01:09 11/27/24 01:04 11/27/24 00:59 11/27/24 00:54 11/27/24 00:49 11/27/24 00:44 11/27/24 00:40 11/27/24 00:39 11/27/24 00:34 11/27/24 00:30 11/27/24 00:29 11/27/24 00:24 11/27/24 00:19 11/27/24 00:14 11/27/24 00:10 11/27/24 00:10 11/27/24 00:10 11/27/24 00:09 11/27/24 00:04 11/27/24 00:00 11/27/24 00:00 11/26/24 23:59 11/26/24 23:59 11/26/24 23:54 11/26/24 23:54 11/26/24 23:51 11/26/24 23:50 11/26/24 23:50 11/26/24 23:49 11/26/24 23:49 11/26/24 23:44 11/26/24 23:44 11/26/24 23:40 11/26/24 23:39 11/26/24 23:39 11/26/24 23:39 11/26/24 23:34 11/26/24 23:34 11/26/24 23:30 11/26/24 23:30 11/26/24 23:30 11/26/24 23:29 11/26/24 23:29 11/26/24 23:24 11/26/24 23:24 11/26/24 23:20 11/26/24 23:19 11/26/24 23:19 11/26/24 23:19 11/26/24 23:14 11/26/24 23:14 11/26/24 23:14 11/26/24 23:10 11/26/24 23:09 11/26/24 23:09 11/26/24 23:09
[2024-11-27] MEDS: NALOXONE HCL 0.08 MG in SYRINGE 1.8 ML IV PRN (11:55)
[2024-11-27] MEDS ORDERED: HYDROmorphone INJ 0.5 MG/0.5 ML SYR IV PRN (18:53)
[2024-11-27] MEDS ORDERED: oxyCODONE HCL IR 5 MG TAB (IMMEDIATE RELEASE) PO PRN (18:53)
[2024-11-27] MEDS ORDERED: diphenhydrAMINE Capsule 25 MG CAP PO PRN (18:53)
[2024-11-27] MEDS ORDERED: PROMETHAZINE 12.5 MG/50.5 ML BAG IV PRN (18:53)
[2024-11-27] MEDS: bisacodyL 5 MG TABEC PO SCH (20:54)
[2024-11-27] MEDS: IBUPROFEN 600 MG TAB PO SCH (23:22)
[2024-11-28 00:06] VITALS: RESP 16; O2SAT 98
[2024-11-28 08:10] LABS: Hematocrit (blood only) 29.9 % (37.0-47.0); Hemoglobin 9.8 g/dl (12.0-16.0)
[2024-11-28 09:44] VITALS: BP 118/80; PULSE 82; TEMP 97.7
--- NOTE | 2024-11-28 09:47 | Discharge Summary ---
Date of Service November 28, 2024 Admission HPI Per Admitting Provider Pt 23 yr old IUP at 37 weeks came to L and D from the office for primary low transverse section for malpresentation( breech), IUGR ( EFW: 8 %),LENNY ( 3.8 cm) Pt denies regular uterine contractions, vaginal bleeding, leaking of fluid per vagina etc. Reports food movement. Admission Exam (Per Admitting) Constitutional WD/WN, vitals as above Discharge Data Consultations 11/26/24 18:02 Consult Anesthesiology Stat Procedures Performed Operation Date: 11/26/24 19:00 Actual Procedures p Section in - Jeanna Perez MD Hospital Course (1) Oligohydramnios: (2) IUGR, : (3) Breech presentation: (4) delivery delivered: Pt clinically and hemodynamically stable to be discharged Follow up in the office in a week for incision check then 3 weeks and 6 weeks for visit discussed contraception Continue Feso4, Vitamins instructions reviewed
[2024-11-28] MEDS ORDERED: bisacodyL 10 MG SUPP PR PRN (23:03)
[2024-11-28] MEDS ORDERED: IBUPROFEN 600 MG TAB PO PRN (23:03)
[2024-11-29] MEDS ORDERED: ACETAMINOPHEN 1,000 MG/100 ML VIAL IV PRN (05:00)
[2024-11-29] MEDS ORDERED: ACETAMINOPHEN 325 MG TAB PO PRN (05:03)
== END 2024-11-28 16:45 | disposition home or self-care (01) | DRG 787 ==
LOC: 4S1 17:46 → 4E2 11-27 01:53